=== PATIENT | male | born 1970 | race Hispanic/Latino ===

== ENCOUNTER 2021-03-17 22:29 | Inpatient (IN) | payer OTHER ==
[2021-03-17] MEDS ORDERED: IPRATROPIUM BROM 0.5MG/2.5ML ONE (23:14)
[2021-03-17] MEDS ORDERED: ALBUTEROL 2.5 MG/3 ML NEB SOL ONE (23:14)
[2021-03-17] MEDS ORDERED: NA CHLORIDE 0.9% 1,000 ML ONE (23:18)
[2021-03-17] MEDS ORDERED: ACETAMINOPHEN 500 MG TAB ONE (23:20)
[2021-03-17] MEDS ORDERED: NA CHLORIDE 0.9% 2,000 ML ONE (23:20)
[2021-03-17 23:36] LABS: Absolute Lymphocytes (CBC) 0.6 K/uL (0.7-4.9); Basophils % 0.2 % (0-1.3); Hematocrit 40.6 % (39.6-49.0); Lymphocytes % 6.9 % (15.3-44.8)
[2021-03-17 23:39] LABS: Protime INR 1.17
[2021-03-17 23:46] LABS: ALT/SGPT 36 U/L (12-78); AST/SGOT 34 U/L (15-37); Albumin 3.4 g/dL (3.4-5.0); Alkaline Phosphatase 53 U/L (45-117); BUN Blood Urea Nitrogen 20 mg/dL (7-18); Bicarbonate 26 mmol/L (21-32); Bilirubin Direct 0.2 mg/dL (0-0.2); Bilirubin Total 0.6 mg/dL (0.2-1.0); Glucose Level 178 mg/dL (74-106); Magnesium 1.9 mg/dL (1.8-2.4); NT PRO-BNP 40 pg/mL (<125); Potassium 3.4 mmol/L (3.5-5.1); Protein, Total 8.2 g/dL (6.4-8.2); Sodium Level 134 mmol/L (136-145); Troponin (Emerg Dept Use Only) < 0.02 ng/mL (0.0-0.045)
[2021-03-17 23:49] LABS: Amylase 73 U/L (25-115); CKMB Creatine Kinase MB < 1.0 ng/mL (1.0-3.6); Creatine Phosphokinase 125 U/L (39-308); Lipase 144 U/L (73-393)
--- NOTE | 2021-03-18 00:43 | ER ---
Nurse's Notes [facility] Name: Conrad Sandoval Jr Age: 50 yrs Sex: Male : 1970 Arrival Date: 03/17/2021 Time: 22:39 Bed 28 Private MD: Diagnosis: Hypoxia;Pneumonia, unspecified organism Presentation: 03/17 22:55 Chief complaint: EMS states: complaining of Shortness of breath. SPO2 86 %RA hooked to rr5 NRM SPO2 98%, last went to his PCP diagnosed with Upper respiratory infection given antibiotic prescription. 22:55 Coronavirus screen: difficulty breathing, fever, shortness of breath, Client presents rr5 with at least one sign or symptom that may indicate coronavirus-19. Standard/surgical mask placed on the client. Provider contacted for isolation considerations. Ebola Screen: Patient negative for fever greater than or equal to 101.5 degrees Fahrenheit, and additional compatible Ebola Virus Disease symptoms Patient denies exposure to infectious person. Patient denies travel to an Ebola-affected area in the 21 days before illness onset. Initial Sepsis Screen: Does the patient meet any 2 criteria? Temp <36.0*C (96.8*F)) or > 38.3*C (100.9*F). HR > 90 bpm. Does the patient have a suspected source of infection? Yes: Productive cough/pneumonia If YES to both, name of provider notified: Keyur Pratt NP Risk Assessment: Do you want to hurt yourself or someone else? Patient reports no desire to harm self or others. Onset of symptoms was March 14, 2021. 22:55 Method Of Arrival: EMS: [facility] rr5 22:55 Acuity: ELIAN 2 rr5 22:55 Care prior to arrival: Medication(s) given: Albuterol Neb Atrovent Neb Normal saline rr5 infusion, 250 ml IV initiated. 18 GA, in the right antecubital area, Med neb given. Oxygen administered. via a non-rebreather mask. Historical: - Allergies: 23:09 No Known Allergies; rr5 - Home Meds: 23:09 Metformin Oral [Active]; Cefuroxime Oral [Active]; prednisone Oral [Active]; rr5 - PMHx: 23:09 Diabetes - IDDM; rr5 - PSHx: 23:09 None; rr5 - Immunization history:: Adult Immunizations up to date, Client reports having NOT received the Covid vaccine. - Social history:: Smoking status: unknown. Screenin:48 Abuse screen: Denies threats or abuse. Denies injuries from another. Nutritional rr5 screening: No deficits noted. Tuberculosis screening: No symptoms or risk factors identified. Fall Risk IV access (20 points). Total Damon Fall Scale indicates No Risk (0-24 pts). Assessment: 03/16 23:00 General: Appears in no apparent distress. uncomfortable, Behavior is calm, cooperative, rr5 appropriate for age, Reports fever for. 23:00 Pain: Denies pain. Neuro: Level of Consciousness is awake, alert, obeys commands, rr5 Oriented to person, place, time. Cardiovascular: Capillary refill < 3 seconds Patient's skin is warm and dry. Respiratory: Reports shortness of breath cough that is Airway is patent Respiratory effort is even, unlabored, Respiratory pattern is regular, symmetrical, tachypnea. GI: No signs and/or symptoms were reported involving the gastrointestinal system. : No signs and/or symptoms were reported regarding the genitourinary system. EENT: No signs and/or symptoms were reported regarding the EENT system. Derm: Skin temperature is warm. Musculoskeletal: Circulation, motion, and sensation intact. Capillary refill < 3 seconds. 03/18 00:00 Reassessment: Patient appears in no apparent distress at this time. Patient is alert, rr5 oriented x 3, equal unlabored respirations, skin warm/dry/pink. Patient states symptoms have improved. 00:57 Reassessment: Patient appears in no apparent distress at this time. Patient is alert, rr5 oriented x 3, equal unlabored respirations, skin warm/dry/pink. hospitalist at bedside. 01:57 Reassessment: Patient and/or family updated on plan of care and expected duration. Pain ea level reassessed. Patient is alert, oriented x 3, equal unlabored respirations, skin warm/dry/pink. Patient states symptoms have improved. 03:00 Reassessment: Patient appears in no apparent distress at this time. Patient is alert, rr5 oriented x 3, equal unlabored respirations, skin warm/dry/pink. report given to carmen RAI. Vital Signs: 03/17 22:55 BP 144 / 91; Pulse 104; Resp 20; Temp 100.2; Pulse Ox 100% on 15% Non-rebreather mask; rr5 Weight 77.11 kg; Height 6 ft. 0 in. (182.88 cm); Pain 0/10; 23:47 BP 127 / 75; Pulse 107; Resp 27; Pulse Ox 91% on 3 lpm NC; rr5 03/18 00:13 BP 127 / 78; Pulse 104; Resp 24; Temp 98.9; Pulse Ox 94% on 3 lpm NC; rr5 01:56 BP 123 / 78; Pulse 94; Resp 24; Pulse Ox 92% on 3 lpm NC; ea 02:55 BP 121 / 70; Pulse 88; Resp 25; Pulse Ox 93% on 3 lpm NC; ea 03/17 22:55 Body Mass Index 23.06 (77.11 kg, 182.88 cm) rr5 ED Course: 03/16 23:00 Patient has correct armband on for positive identification. Placed in gown. Bed in low rr5 position. Call light in reach. Side rails up X2. laboratory monitor on. Pulse ox on. NIBP on. 03/17 22:39 Patient arrived in ED. mw2 22:40 Keyur Pratt NP is PHCP. pm1 22:40 Cyrus Levi MD is Attending Physician. pm1 23:00 Arm band placed on right wrist. Patient placed in an exam room, on a stretcher, on ea pulse oximetry. 23:03 Diogo Moss RN is Primary Nurse. rr5 23:05 EKG done, by ED staff, reviewed by Keyur Pratt NP. rr5 23:08 Triage completed. rr5 23:10 Inserted saline lock: 18 gauge in right antecubital area, using aseptic technique. rr5 ,using aseptic technique. inserted by ulises RAI Blood collected. 23:33 XRAY Chest (1 view) In Process Unspecified. EDMS 03/18 00:42 Patric Dutton DO is Hospitalizing Provider. pm1 01:46 No provider procedures requiring assistance completed. Patient admitted, IV remains in ea place. Administered Medications: 03/17 22:56 Drug: Albuterol - atroVENT (ipratropium) (3:1) (2.5 mg - 0.5 mg) 3 ml Route: Nebulizer; ea 03/18 00:00 Follow up: Response: No adverse reaction rr5 03/17 23:04 Drug: Tylenol 1000 mg Route: PO; rr5 03/18 00:55 Follow up: Response: Temperature is decreased rr5 03/17 23:12 Drug: NS 0.9% (30 ml/kg) 30 ml/kg Route: IV; Rate: bolus; Site: right antecubital; rr5 03/18 01:00 Follow up: Response: No adverse reaction; IV Status: Completed infusion; IV Intake: rr5 2300ml 02:21 Drug: SOLU-Medrol (methylPrednisoLONE) 125 mg Route: IVP; Site: left antecubital; ea 02:59 Follow up: Response: No adverse reaction rr5 Intake: 01:00 IV: 2300ml; Total: 2300ml. rr5 Outcome: 00:43 Decision to Hospitalize by Provider. pm1 01:46 Admitted to ER Hold. Please see [facility] for further documentation. ea 01:46 Condition: stable 01:46 Instructed on the need for admit, Demonstrated understanding of instructions. 03:15 Patient left the ED. rr5 Signatures: Dispatcher [employer] EDMS Keyur Pratt NP REHABILITATION CENTER MANAGER pm1 Reanna Borrego RN RN Maynor King mw2 Diogo Moss RN RN rr5 Corrections: (The following items were deleted from the chart) 01:03 03/17 22:55 Care prior to arrival: Medication(s) given: Albuterol Neb Atrovent Neb rr5 Normal saline infusion, 250 ml IV initiated. 18 GA, in the right antecubital area, Med neb given. Oxygen administered. via a non-rebreather mask, rr5 03/18 02:59 03/17 22:55 Care prior to arrival: Medication(s) given: Albuterol Neb Atrovent Neb rr5 Normal saline infusion, 250 ml solu medrol IV initiated. 18 GA, in the right antecubital area, Med neb given. Oxygen administered. via a non-rebreather mask, rr5
--- NOTE | 2021-03-18 00:43 | EDPHYS ---
Physician Documentation [facility] Name: Conrad Sandoval Jr Age: 50 yrs Sex: Male : 1970 Arrival Date: 03/17/2021 Time: 22:39 Bed 28 Private MD: ED Physician Cyrus Levi HPI: 03/17 23:05 This 50 yrs old Male presents to ER via EMS with complaints of Shortness Of pm1 Breath. 23:05 The patient has shortness of breath at rest. Onset: The symptoms/episode began/occurred pm1 3 day(s) ago. Duration: The symptoms are continuous, and are steadily getting worse. The patient's shortness of breath is aggravated by nothing, is alleviated by nothing. Associated signs and symptoms: Pertinent positives: chest pain, fever, with deep breathing, Pertinent negatives: vomiting, diarrhea. Severity of symptoms: in the emergency department the symptoms are worse. The patient has been recently seen by a physician: the patient's primary care provider, Dr. Carrizales with similar presenting complaints, was given a prescription for antibiotics, Steroids. Patient with RA sat of 86% on EMS arrival. Historical: - Allergies: 23:09 No Known Allergies; rr5 - Home Meds: 23:09 Metformin Oral [Active]; Cefuroxime Oral [Active]; prednisone Oral [Active]; rr5 - PMHx: 23:09 Diabetes - IDDM; rr5 - PSHx: 23:09 None; rr5 - Immunization history:: Adult Immunizations up to date, Client reports having NOT received the Covid vaccine. - Social history:: Smoking status: unknown. ROS: 23:05 Eyes: Negative for injury, pain, redness, and discharge, ENT: Negative for injury, pm1 pain, and discharge, Neck: Negative for injury, pain, and swelling. 23:05 Abdomen/GI: Negative for abdominal pain, nausea, vomiting, diarrhea, and constipation, Back: Negative for injury and pain, MS/Extremity: Negative for injury and deformity, Skin: Negative for injury, rash, and discoloration, Neuro: Negative for headache, weakness, numbness, tingling, and seizure. 23:05 Constitutional: Positive for fever. 23:05 Cardiovascular: Positive for chest pain, with deep breathing. 23:05 Respiratory: Positive for shortness of breath. Exam: 23:05 Constitutional: This is a well developed, well nourished patient who is awake, alert, pm1 and in no acute distress. Head/Face: Normocephalic, atraumatic. 23:05 Skin: Warm, dry with normal turgor. Normal color with no rashes, no lesions, and no evidence of cellulitis. MS/ Extremity: Pulses equal, no cyanosis. Neurovascular intact. Full, normal range of motion. 23:05 Eyes: Exam is negative for acute changes, Extraocular movements: no acute changes, Conjunctiva: normal, no injection. 23:05 ENT: Mouth: Lips: normal, Oral mucosa: normal, pink and intact, moist. 23:05 Chest/axilla: Inspection: normal, Palpation: is normal. 23:05 Cardiovascular: Rate: tachycardic, Rhythm: regular, Pulses: no pulse deficits are appreciated, Heart sounds: normal, Edema: is not appreciated. 23:05 Respiratory: the patient does not display signs of respiratory distress, Respirations: normal, Breath sounds: bronchial sounds, are heard diffusely. 23:05 Abdomen/GI: Inspection: abdomen appears normal, Palpation: abdomen is soft and non-tender. 23:05 Neuro: Orientation: is normal, Mentation: is normal, Motor: is normal, moves all fours. Vital Signs: 22:55 BP 144 / 91; Pulse 104; Resp 20; Temp 100.2; Pulse Ox 100% on 15% Non-rebreather mask; rr5 Weight 77.11 kg; Height 6 ft. 0 in. (182.88 cm); Pain 0/10; 23:47 BP 127 / 75; Pulse 107; Resp 27; Pulse Ox 91% on 3 lpm NC; rr5 03/18 00:13 BP 127 / 78; Pulse 104; Resp 24; Temp 98.9; Pulse Ox 94% on 3 lpm NC; rr5 01:56 BP 123 / 78; Pulse 94; Resp 24; Pulse Ox 92% on 3 lpm NC; ea 02:55 BP 121 / 70; Pulse 88; Resp 25; Pulse Ox 93% on 3 lpm NC; ea 03/17 22:55 Body Mass Index 23.06 (77.11 kg, 182.88 cm) rr5 MDM: 03/17 22:44 Patient medically screened. pm1 03/18 00:39 Physician consultation: Turner PARNELL regarding admission, patient's condition, and pm1 will see patient in ED, pending covid swab result. Impression likely covid pneumonia. If covid swab negative, then initiate abx therapy. 00:41 Data reviewed: vital signs. Data interpreted: Pulse oximetry: on 3L(s) per nasal pm1 canula, is 94 %. Interpretation: acceptable. Counseling: I had a detailed discussion with the patient and/or guardian regarding: the historical points, exam findings, and any diagnostic results supporting the discharge/admit diagnosis, lab results, radiology results, the need for further work-up and treatment in the hospital, to return to the emergency department if symptoms worsen or persist or if there are any questions or concerns that arise at home. 00:41 ED course: Patient with supplemental oxygen requirements. 86% on EMS arrival. On ER pm1 arrival patient on NRB. Patient requiring 3 L NC to maintain 93-94%. 03/17 22:50 Order name: Basic Metabolic Panel; Complete Time: 00:23 pm03/17 22:50 Order name: CBC with Diff; Complete Time: 00:23 pm03/17 22:50 Order name: LFT's; Complete Time: 00:23 pm03/17 22:50 Order name: Magnesium; Complete Time: 00:23 pm03/17 22:50 Order name: NT PRO-BNP; Complete Time: 00:23 pm03/17 22:50 Order name: PT-INR; Complete Time: 00:23 pm03/17 22:50 Order name: Troponin (emerg Dept Use Only); Complete Time: 00:23 pm03/17 22:53 Order name: Amylase, Serum 03/17 22:53 Order name: Blood Culture Adult (2) 03/17 22:53 Order name: Ckmb 03/17 22:53 Order name: CPK 03/17 22:53 Order name: Lactate; Complete Time: 00:23 pm03/17 22:53 Order name: Lipase 03/17 22:53 Order name: Procalcitonin; Complete Time: 00:30 pm03/17 22:50 Order name: XRAY Chest (1 view); Complete Time: 13:45 pm03/17 22:53 Order name: Ptt, Activated; Complete Time: 00:23 pm03/17 22:53 Order name: Urine Microscopic Only pm03/17 22:53 Order name: Amylase; Complete Time: 00:23 EDMS 03/17 22:53 Order name: CRP; Complete Time: 00:23 la03/17 22:54 Order name: CKMB Creatine Kinase MB; Complete Time: 00:23 EDMS 03/17 22:54 Order name: Creatine Phosphokinase; Complete Time: 00:23 EDMS 03/17 22:54 Order name: Lipase; Complete Time: 00:23 EDMS 03/17 23:13 Order name: COVID-19 : Document "Date of Symptom Onset" if Symptomatic. pm03/17 23:13 Order name: Flu 03/17 23:13 Order name: Strep; Complete Time: 13:45 pm03/17 23:13 Order name: Influenza Screen (A ; Complete Time: 13:45 EDMS 03/18 02:29 Order name: SARS-COV-2 RT PCR; Complete Time: 13:45 EDMS 03/17 22:50 Order name: EKG; Complete Time: 22:51 pm03/17 22:50 Order name: Cardiac monitoring; Complete Time: 23:13 pm03/17 22:50 Order name: EKG - Nurse/Tech; Complete Time: 23:13 pm03/17 22:50 Order name: IV Saline Lock; Complete Time: 23:13 pm03/17 22:50 Order name: Labs collected and sent; Complete Time: 23:13 pm03/17 22:50 Order name: O2 Per Protocol; Complete Time: 23:13 pm03/17 22:50 Order name: O2 Sat Monitoring; Complete Time: 23:13 pm03/17 22:53 Order name: Accucheck; Complete Time: 23:13 pm03/17 22:53 Order name: IV Saline Lock - Large Bore; Complete Time: 23:12 pm03/17 22:53 Order name: Urine Dipstick-Ancillary (obtain specimen); Complete Time: 02:07 pm03/18 02:07 Interpretation: Abnormal. la1 Administered Medications: 03/17 22:56 Drug: Albuterol - atroVENT (ipratropium) (3:1) (2.5 mg - 0.5 mg) 3 ml Route: Nebulizer; ea 03/18 00:00 Follow up: Response: No adverse reaction rr5 03/17 23:04 Drug: Tylenol 1000 mg Route: PO; rr5 03/18 00:55 Follow up: Response: Temperature is decreased rr5 03/17 23:12 Drug: NS 0.9% (30 ml/kg) 30 ml/kg Route: IV; Rate: bolus; Site: right antecubital; rr5 03/18 01:00 Follow up: Response: No adverse reaction; IV Status: Completed infusion; IV Intake: rr5 2300ml 02:21 Drug: SOLU-Medrol (methylPrednisoLONE) 125 mg Route: IVP; Site: left antecubital; ea 02:59 Follow up: Response: No adverse reaction rr5 Disposition: 05:37 Co-signature as Attending Physician, Cyrus Levi MD. 7 Disposition: 03/18/21 00:43 Hospitalization ordered by Patric Dutton for Inpatient Admission. Preliminary diagnosis are Hypoxia, Pneumonia, unspecified organism. - Bed requested for Intensive Care Unit. - Status is Inpatient Admission. rr5 - Condition is Stable. - Problem is new. - Symptoms have improved. Signatures: Dispatcher [employer] EDIA Turner Avelar, RECORDS MANAGEMENT COORDINATOR-C RECORDS MANAGEMENT COORDINATOR-Cla1 Keyur Pratt, [employer] pm1 Reanna Borrego, RN RN Maynor Carroll mw2 Diogo Moss RN RN rr5 Cyrus Levi MD MD 7 Geneva Rodrigues RN RN rd1 Corrections: (The following items were deleted from the chart) 01:05 03/17 23:13 CORONAVIRUS ordered. [facility] EDIA 03/18 01:10 00:43 Hospitalization Ordered by Patric Dutton DO for Inpatient Admission. Preliminary mw2 diagnosis is Hypoxia; Pneumonia, unspecified organism. Bed requested for Telemetry/MedSurg (Inpatient). Status is Inpatient Admission. Condition is Stable. Problem is new. Symptoms have improved. pm1 02:49 01:10 03/18/2021 00:43 Hospitalization Ordered by Patric Dutton DO for Inpatient rd1 Admission. Preliminary diagnosis is Hypoxia; Pneumonia, unspecified organism. Bed requested for [facility] ER HOLD. Status is Inpatient Admission. Condition is Stable. Problem is new. Symptoms have improved. mw2 02:50 02:49 03/18/2021 00:43 Hospitalization Ordered by Patric Dutton DO for Inpatient rd1 Admission. Preliminary diagnosis is Hypoxia; Pneumonia, unspecified organism. Bed requested for [facility] ER HOLD. Status is Inpatient Admission. Condition is Stable. Problem is new. Symptoms have improved. rd1 02:51 02:50 03/18/2021 00:43 Hospitalization Ordered by Patric Dutton DO for Inpatient mw2 Admission. Preliminary diagnosis is Hypoxia; Pneumonia, unspecified organism. Bed requested for [facility] ER HOLD. Status is Inpatient Admission. Condition is Stable. Problem is new. Symptoms have improved. rd1 03:15 02:51 03/18/2021 00:43 Hospitalization Ordered by Patric Dutton DO for Inpatient rr5 Admission. Preliminary diagnosis is Hypoxia; Pneumonia, unspecified organism. Bed requested for Intensive Care Unit. Status is Inpatient Admission. Condition is Stable. Problem is new. Symptoms have improved. mw2
--- NOTE | 2021-03-18 02:12 | P.HP ---
Certification for Inpatient Patient admitted to: Inpatient With expected LOS: >2 Midnights Patient will require the following post-hospital care: None Practitioner: I am a practitioner with admitting privileges, knowledge of patient current condition, hospital course, and medical plan of care. Services: Services provided to patient in accordance with Admission requirements found in Title 42 Section 412.3 of the Code of Federal Regulations Patient History Date of Service: 03/18/21 Primary Care Provider: Dr. rg Reason for admission: COVID-19 pneumonia History of Present Illness: 50-year-old male with history of diabetes mellitus type 2, hypertension presents emergency department for shortness of breath. Patient reports feeling short of breath since Friday, was seen by his primary care doctor on Friday and prescribed Zithromax in tested for influenza which was negative. Patient presents the emergency department for evaluation was found to be saturating in the 80s on room air. Further evaluation, labs significant for normal white blood cell count, pro calcitonin negative lactate negative sodium 134, potassium 3.4, glucose 178 C-reactive protein 91.2, patient positive for COVID. ED provider wishes to admit for further evaluation and management. 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 moist/pink Neck: Supple, 2+ carotid pulse no bruit, No LAD Respiratory: Normal air movement, Diminished Cardiovascular: Regular rate/rhythm, Normal S1 S2 Gastrointestinal: Normal bowel sounds, No tenderness Musculoskeletal: No tenderness Integumentary: No rashes Neurological: Normal gait, Normal speech, Normal strength at 5/5 x4 extr, Normal tone, Normal affect Lymphatics: No axilla or inguinal lymphadenopathy - Studies Laboratory Data (last 24 hrs) 03/17/21 23:05: APTT 27.2 03/17/21 23:05: Amylase 73, Lipase 144 03/17/21 23:05: PT 13.5 H, INR 1.17 03/17/21 23:05: WBC 8.20, Hgb 14.0, Hct 40.6, Plt Count 252 03/17/21 23:05: Sodium 134 L, Potassium 3.4 L, BUN 20 H, Creatinine 0.91, Glucose 178 H, Magnesium 1.9, Total Bilirubin 0.6, AST 34, ALT 36, Alkaline Phosphatase 53 Assessment and Plan - Plan Assessment Acute hypoxic respiratory failure secondary to COVID-19 pneumonia Diabetes mellitus type 2-insulin dependent with hyperglycemia Hypertension Plan Acute hypoxic respiratory failure secondary to COVID-19 pneumonia: Patient did not receive vaccines, will continue with IV steroids, oral supplements, pulmonology consulted for additional assistance/medications selection. Daily CRP/ferritin levels. Supplemental oxygen as needed, respiratory therapy consult in place. Daily room air saturations. DVT prophylaxis Lovenox 40 mg subcutaneous once daily. Diabetes mellitus type 2-insulin dependent with hyperglycemia: A.c. HS Accu- Cheks, sliding scale insulin. Continue home medication. Patient reports last A1c was around 6. Hypertension : Continue home medications as appropriate. Discharge Plan: Home Plan to discharge in: 48 Hours - Advance Directives Does patient have a Living Will: No Does patient have a Durable POA for Healthcare: No - Code Status/Comfort Care Code Status Assessed: Yes (Full code) Critical Care: No Time Spent Managing Pts Care (In Minutes): 55
[2021-03-18] MEDS ORDERED: METHYLPREDNISOLONE 125 MG INJ ONE (02:39)
[2021-03-18] MEDS ORDERED: ONDANSETRON 4 MG/2 ML VIAL IV PRN (03:16)
[2021-03-18] MEDS ORDERED: BENZONATATE 100 MG CAP PO PRN (03:16)
[2021-03-18] MEDS ORDERED: GLUCAGON 1 MG/VIAL IM PRN (03:16)
[2021-03-18] MEDS ORDERED: ACETAMINOPHEN 500 MG TAB PO PRN (03:16)
[2021-03-18] MEDS ORDERED: D50W 25 GM/50 ML SYRINGE IV PRN (03:16)
[2021-03-18] MEDS ORDERED: MELATONIN 5 MG TABLET PO PRN (03:16)
[2021-03-18 04:17] VITALS: BMI 23.0
--- NOTE | 2021-03-18 05:55 | P.PN ---
Subjective Date of Service: 03/18/21 Primary Care Provider: Dr. rg Chief Complaint: COVID-19 pneumonia Subjective: Other (Patient reports improvement. Currently on 5 L per nasal cannula. Patient does not appear labored.) Physical Examination - Vital Signs Temperature: 97.4 F Blood Pressure: 128/86 Pulse: 82 Respirations: 22 Pulse Ox (%): 87 - Studies Laboratory Data (last 24 hrs) 03/17/21 23:05: APTT 27.2 03/17/21 23:05: Amylase 73, Lipase 144 03/17/21 23:05: PT 13.5 H, INR 1.17 03/17/21 23:05: WBC 8.20, Hgb 14.0, Hct 40.6, Plt Count 252 03/17/21 23:05: Sodium 134 L, Potassium 3.4 L, BUN 20 H, Creatinine 0.91, Glucose 178 H, Magnesium 1.9, Total Bilirubin 0.6, AST 34, ALT 36, Alkaline Phosphatase 53 Microbiology Data (last 24 hrs): 03/17/21 23:25 Nasopharnyx Influenza Type A Antigen Screen - Final 03/17/21 23:25 Nasopharnyx Influenza Type B Antigen Screen - Final 03/17/21 23:25 Throat Group A Streptococcus Rapid Screen - Final Assessment & Plan Discharge Plan: Home Plan to discharge in: 72 Hours Physician Review Additional Text: Physical exam General: Alert, In no apparent distress. Currently on 5 L per nasal cannula. Patient does not appear in any distress. HEENT: Atraumatic, PERRLA, Mucous membr. moist/pink Neck: Supple Respiratory: Currently on 4 L per nasal cannula Cardiovascular: Regular rate/rhythm, Normal S1 S2 Gastrointestinal: Normal bowel sounds, No tenderness Musculoskeletal: No tenderness Integumentary: No rashes Neurological: Normal gait, Normal speech, Normal strength at 5/5 x4 extr, Normal tone, Normal affect Lymphatics: No axilla or inguinal lymphadenopathy Impression: Acute hypoxic respiratory failure secondary to COVID-19 pneumonia Diabetes mellitus type 2-insulin dependent with hyperglycemia Plan Acute hypoxic respiratory failure secondary to COVID-19 pneumonia: Patient reports some improvement. Continue IV steroids, vitamin supplementation and oxygen. Continue to wean off oxygen. Currently on 5 L per nasal cannula. CRP elevated. Continue to monitor CRP and ferritin levels. DVT prophylaxisLovenox in place. Encourage proning, incentive spirometer and ambulation. Pulmonology consulted for further recommendation. Patient may benefit with remdesivir or baricitinib. Will discuss with pulmonology. Anticipate continued improvement over the next 48 to 72 hours. Patient will likely require oxygen at discharge. Will need to keep diabetes well controlled. I will turn the service over to the hospitalist team tomorrow. I will go plan of care with him. Diabetes mellitus type 2-insulin dependent with hyperglycemia: Continue basal insulin. Restart home Metformin. Will check A1c. Sliding scale in place. Maintain adequate control of diabetes. DVT prophylaxis: Lovenox Code Status: Full code Advanced care planning: Home at [place] Time Spent Managing Pts Care (In Minutes): 55
[2021-03-18 07:09] LABS: Urine Appearance CLEAR (Clear); Urine Bilirubin NEGATIVE (Negative); Urine Blood NEGATIVE (Negative); Urine Color YELLOW (Yellow); Urine Glucose 3+ (Negative); Urine Protein 1+ (Negative); Urine Specific Gravity >=1.030 (1.005-1.030)
[2021-03-18] MEDS: INSULIN -REGULAR HUMAN 50 UNIT/0.5 ML ML SQ SCH ×4 (07:33→20:51)
[2021-03-18] MEDS: THIAMINE HCL 100 MG TABLET PO SCH (07:34)
[2021-03-18] MEDS: VITAMIN D 1000 UNIT TAB PO SCH (07:34)
[2021-03-18] MEDS: ASPIRIN EC 81 MG TAB PO SCH (07:34)
[2021-03-18] MEDS: METHYLPREDNISOLONE 40 MG INJ IV SCH ×3 (07:35→20:51)
[2021-03-18] MEDS: ASCORBIC ACID 500 MG TABLET PO SCH ×4 (07:35→20:51)
[2021-03-18] MEDS: ZINC SULFATE 220 MG CAP PO SCH (07:35)
[2021-03-18] MEDS: ENOXAPARIN 40 MG/0.4 ML SQ SCH (07:35)
[2021-03-18] MEDS: IVERMECTIN 3 MG TABLET PO SCH (08:29)
[2021-03-18] MEDS ORDERED: POTASSIUM CL SA 10 MEQ TAB PO ONE ×2 (09:00→15:00)
--- NOTE | 2021-03-18 09:18 | P.CNS ---
Date of Consult: 03/19/21 Reason for Consult: REsp failure Primary Care Provider: Dr. rg Chief Complaint: COVID-19 pneumonia History of Present Illness: Age 50 AW resp failure from COVID, AW worsening SOB and hypoxemia/patient has metabolic syndrome was treated by his primary care with Zithromax still continues to remain very hypoxic although is feeling better since admission Allergies No Known Allergies Allergy (Verified 03/18/21 03:06) Home Medications: Cefuroxime Axetil [Cefuroxime] 500 mg PO BID 03/18/21 Insulin Degludec [Tresiba Flextouch U-200] 40 unit SQ DAILY 03/18/21 Metformin ER [Glucophage ER] 500 mg PO BID 03/18/21 predniSONE [Deltasone] 10 mg PO BID 03/18/21 - Past Medical/Surgical History Diabetic: Yes -: Diabetes mellitus type 2-insulin dependent -: Hypertension -: none Psychosocial/ Personal History: 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[email or web address], 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 - Family History Mother Medical History: Diabetes Father History Unknown: Yes Medical History: Diabetes - Social History Smoking Status: Unknown if ever smoked Alcohol use: No CD- Drugs: No Caffeine use: Yes Place of Residence: Home Review of Systems General: Weakness Respiratory: Shortness of Breath Physical Examination Temp Pulse Resp BP Pulse Ox 97.2 F 82 20 137/97 H 90 L 03/18/21 08:00 03/18/21 08:00 03/18/21 08:00 03/18/21 08:00 03/18/21 08:00 Laboratory Data (last 24 hrs) 03/17/21 23:05: APTT 27.2 03/17/21 23:05: Amylase 73, Lipase 144 03/17/21 23:05: PT 13.5 H, INR 1.17 03/17/21 23:05: WBC 8.20, Hgb 14.0, Hct 40.6, Plt Count 252 03/17/21 23:05: Sodium 134 L, Potassium 3.4 L, BUN 20 H, Creatinine 0.91, Glucose 178 H, Magnesium 1.9, Total Bilirubin 0.6, AST 34, ALT 36, Alkaline Phosphatase 53 - Problems (1) Acute respiratory failure due to severe acute respiratory syndrome coronavirus 2 (SARS-CoV-2) infection Current Visit: Yes Status: Acute Plan: Patient is 50 years of age admitted with respiratory failure from kaufman virus he still very hypoxic also being treated with high dose just steroids andBarcitinib. Anti coagulated with Xarelto 10 mg twice a day vital signs stable labs chest x-ray r reviewed he still very hypoxic is an 80% FiO2
[2021-03-18 10:04] LABS: Urine Bacteria NONE SEEN /HPF (NONE SEEN); Urine Microscopic Reflex ORDER UMIC; Urine RBC <5 /HPF (NONE SEEN)
--- NOTE | 2021-03-18 11:12 | RAD REPORT ---
EXAM DESCRIPTION: Amos Single View03/17/2021 11:34 pm CLINICAL HISTORY: Cough COMPARISON: 2013 FINDINGS: Moderate bilateral patchy lung opacities Mild prominence mediastinum. Heart is upper normal size IMPRESSION: Moderate bilateral patchy lung opacities probably pneumonia Mild prominence of mediastinum be confluence of vessels or lymphadenopathy
[2021-03-18] MEDS: BARICITINIB 2 MG TABLET PO SCH (11:14)
[2021-03-18] MEDS: METFORMIN ER 500 MG TAB PO SCH (16:00)
[2021-03-18] MEDS: INSULIN GLARGINE 100 UNITS/ML SQ SCH (16:01)
[2021-03-19 04:44] LABS: Absolute Lymphocytes (CBC) 0.8 K/uL (0.7-4.9); Basophils % 0.1 % (0-1.3); Hematocrit 37.1 % (39.6-49.0); MPV 8.5 fL (7.6-11.3); RBC Red Blood Cell Count 4.38 M/uL (4.33-5.43)
[2021-03-19 05:16] LABS: ALT/SGPT 29 U/L (12-78); AST/SGOT 24 U/L (15-37); Albumin 2.9 g/dL (3.4-5.0); Alkaline Phosphatase 41 U/L (45-117); BUN Blood Urea Nitrogen 18 mg/dL (7-18); Bicarbonate 29 mmol/L (21-32); Bilirubin Total 0.5 mg/dL (0.2-1.0); Ferritin 842.3 ng/mL (26-388); Glucose Level 154 mg/dL (74-106); HDL Cholesterol 40 mg/dL (40-60); LDL Cholesterol, Calculated 76 (<130); Magnesium 2.2 mg/dL (1.8-2.4); Potassium 3.8 mmol/L (3.5-5.1); Protein, Total 7.3 g/dL (6.4-8.2); Sodium Level 136 mmol/L (136-145); Thyroid Stimulating Hormone 0.563 uIU/mL (0.360-3.740)
[2021-03-19 06:06] LABS: Blood Morphology Comment NOT SEEN (NOT SEEN); Platelet Estimate ADEQ
[2021-03-19] MEDS: INSULIN -REGULAR HUMAN 50 UNIT/0.5 ML ML SQ SCH ×4 (07:30→20:45)
[2021-03-19] MEDS: THIAMINE HCL 100 MG TABLET PO SCH (08:24)
[2021-03-19] MEDS: METFORMIN ER 500 MG TAB PO SCH ×2 (08:24→16:50)
[2021-03-19] MEDS: BARICITINIB 2 MG TABLET PO SCH (08:24)
[2021-03-19] MEDS: ENOXAPARIN 40 MG/0.4 ML SQ SCH (08:24)
[2021-03-19] MEDS: METHYLPREDNISOLONE 40 MG INJ IV SCH ×3 (08:24→20:45)
[2021-03-19] MEDS: ASPIRIN EC 81 MG TAB PO SCH (08:25)
[2021-03-19] MEDS: VITAMIN D 1000 UNIT TAB PO SCH (08:25)
[2021-03-19] MEDS: ASCORBIC ACID 500 MG TABLET PO SCH ×4 (08:25→20:44)
[2021-03-19] MEDS: ZINC SULFATE 220 MG CAP PO SCH (08:25)
[2021-03-19] MEDS ORDERED: POTASSIUM CL SA 10 MEQ TAB PO ONE (09:00)
[2021-03-19] MEDS: RIVAROXABAN 10 MG TABLET PO SCH ×2 (09:26→20:44)
--- NOTE | 2021-03-19 15:52 | EKG ---
Test Date: 2021-03-17 Test Time: 22:55:17 Computer Numerical Control Operator: RR MEASUREMENT RESULTS: Intervals: Rate: 105 ID: [id number] QRSD: 88 QT: 330 QTc: 436 [place]: P: 30 ID: [id number] QRS: -11 T: 26 INTERPRETIVE STATEMENTS: Sinus tachycardia Otherwise normal ECG No previous ECG available for comparison Electronically Signed On 03-19-21 15:47:28 CDT by Bacilio Rios
[2021-03-19] MEDS: INSULIN GLARGINE 100 UNITS/ML SQ SCH (16:51)
[2021-03-20 05:06] LABS: Absolute Lymphocytes (CBC) 0.9 K/uL (0.7-4.9); Basophils % 0.4 % (0-1.3); Hematocrit 36.1 % (39.6-49.0); Lymphocytes % 10.7 % (15.3-44.8); MPV 8.5 fL (7.6-11.3); RBC Red Blood Cell Count 4.25 M/uL (4.33-5.43)
[2021-03-20 05:26] LABS: ALT/SGPT 32 U/L (12-78); AST/SGOT 20 U/L (15-37); Albumin 2.9 g/dL (3.4-5.0); Alkaline Phosphatase 41 U/L (45-117); BUN Blood Urea Nitrogen 23 mg/dL (7-18); Bicarbonate 30 mmol/L (21-32); Bilirubin Total 0.5 mg/dL (0.2-1.0); Ferritin 764.9 ng/mL (26-388); Glucose Level 145 mg/dL (74-106); Magnesium 2.3 mg/dL (1.8-2.4); Protein, Total 7.2 g/dL (6.4-8.2); Sodium Level 136 mmol/L (136-145)
--- NOTE | 2021-03-20 05:44 | P.PN ---
Subjective Date of Service: 03/19/21 Patient oxygen saturations are in the mid 90s on AIRVO at 85%. Otherwise no new complaints. Management per Pulmonary. Review of Systems 10-point ROS is otherwise unremarkable Physical Examination - Vital Signs Temperature: 97.1 F Blood Pressure: 124/83 Pulse: 65 Respirations: 21 Pulse Ox (%): 91 - Physical Exam General: Alert, In no apparent distress, Oriented x3 HEENT: Atraumatic, PERRLA, EOMI Neck: Supple, JVD not distended Respiratory: Diminished, Rhonchi/gurgles Cardiovascular: Regular rate/rhythm, Normal S1 S2, Systolic murmur Gastrointestinal: Normal bowel sounds, Soft and benign, Non-distended, No tenderness Musculoskeletal: No clubbing, No swelling, No tenderness Neurological: Normal speech, Normal tone, Normal affect Lymphatics: No axilla or inguinal lymphadenopathy - Studies Medications List Reviewed: Yes Assessment & Plan - Problems (Diagnosis) (1) Acute respiratory failure due to severe acute respiratory syndrome coronavirus 2 (SARS-CoV-2) infection Current Visit: Yes Status: Acute - Plan 1. Continue with IV steroids 2. Monitor inflammatory markers 3. Repeat chest x-ray is symptoms are progressively worsening 4. O2 per protocol 5. Management per Pulmonary 6. Continue with albuterol inhaler therapy; also supportive care 7. Monitor LFTs 8. GI and DVT prophylaxis - Advance Directives Does patient have a Living Will: No Does patient have a Durable POA for Healthcare: No
[2021-03-20] MEDS: INSULIN -REGULAR HUMAN 50 UNIT/0.5 ML ML SQ SCH ×4 (07:30→19:35)
[2021-03-20] MEDS: METHYLPREDNISOLONE 40 MG INJ IV SCH ×3 (08:06→19:35)
[2021-03-20] MEDS: RIVAROXABAN 10 MG TABLET PO SCH ×2 (08:07→19:35)
[2021-03-20] MEDS: VITAMIN D 1000 UNIT TAB PO SCH (08:07)
[2021-03-20] MEDS: THIAMINE HCL 100 MG TABLET PO SCH (08:07)
[2021-03-20] MEDS: ASCORBIC ACID 500 MG TABLET PO SCH ×4 (08:07→19:35)
[2021-03-20] MEDS: ASPIRIN EC 81 MG TAB PO SCH (08:07)
[2021-03-20] MEDS: ZINC SULFATE 220 MG CAP PO SCH (08:07)
[2021-03-20] MEDS: IVERMECTIN 3 MG TABLET PO SCH (08:08)
[2021-03-20] MEDS: METFORMIN ER 500 MG TAB PO SCH ×2 (08:08→16:36)
[2021-03-20] MEDS: BARICITINIB 2 MG TABLET PO SCH (08:09)
--- NOTE | 2021-03-20 12:35 | P.PN ---
Subjective Date of Service: 03/20/21 Primary Care Provider: Dr. rg Chief Complaint: Respiratory failure Subjective: Improving (Patient is improving feeling better still very hypoxic) Review of Systems General: Weakness Respiratory: Shortness of Breath Physical Examination - Vital Signs Temperature: 97.1 F Blood Pressure: 124/83 Pulse: 65 Respirations: 21 Pulse Ox (%): 91 - Studies Microbiology Data (last 24 hrs): 03/17/21 23:25 Throat Culture & Sensitivity - Final NORMAL UPPER RESPIRATORY EUNICE GROWN. Medications List Reviewed: Yes Assessment & Plan - Problems (Diagnosis) (1) Acute respiratory failure due to severe acute respiratory syndrome coronavirus 2 (SARS-CoV-2) infection Current Visit: Yes Status: Acute Plan: Respiratory failure on maximum treatment feeling better still on 70% FiO2 will continue to wean down labs reviewed patient is on maximum therapy his inform me that he will even continue with present therapy on 70% FiO2 is sat is now 91% Physician Review Additional Text: Physical exam General: Alert, In no apparent distress. Currently on 5 L per nasal cannula. Patient does not appear in any distress. HEENT: Atraumatic, PERRLA, Mucous membr. moist/pink Neck: Supple Respiratory: Currently on 4 L per nasal cannula Cardiovascular: Regular rate/rhythm, Normal S1 S2 Gastrointestinal: Normal bowel sounds, No tenderness Musculoskeletal: No tenderness Integumentary: No rashes Neurological: Normal gait, Normal speech, Normal strength at 5/5 x4 extr, Normal tone, Normal affect Lymphatics: No axilla or inguinal lymphadenopathy Impression: Acute hypoxic respiratory failure secondary to COVID-19 pneumonia Diabetes mellitus type 2-insulin dependent with hyperglycemia Plan Acute hypoxic respiratory failure secondary to COVID-19 pneumonia: Patient reports some improvement. Continue IV steroids, vitamin supplementation and oxygen. Continue to wean off oxygen. Currently on 5 L per nasal cannula. CRP elevated. Continue to monitor CRP and ferritin levels. DVT prophylaxisLovenox in place. Encourage proning, incentive spirometer and ambulation. Pulmonology consulted for further recommendation. Patient may benefit with remdesivir or baricitinib. Will discuss with pulmonology. Anticipate continued improvement over the next 48 to 72 hours. Patient will likely require oxygen at discharge. Will need to keep diabetes well controlled. I will turn the service over to the hospitalist team tomorrow. I will go plan of care with him. Diabetes mellitus type 2-insulin dependent with hyperglycemia: Continue basal insulin. Restart home Metformin. Will check A1c. Sliding scale in place. Maintain adequate control of diabetes. DVT prophylaxis: Lovenox Code Status: Full code Advanced care planning: Home at [place]
[2021-03-20] MEDS: INSULIN GLARGINE 100 UNITS/ML SQ SCH (16:36)
[2021-03-21 05:27] LABS: Absolute Lymphocytes (CBC) 0.9 K/uL (0.7-4.9); Basophils % 0.1 % (0-1.3); Hematocrit 37.7 % (39.6-49.0); Lymphocytes % 10.3 % (15.3-44.8); MPV 8.3 fL (7.6-11.3); RBC Red Blood Cell Count 4.41 M/uL (4.33-5.43)
[2021-03-21 05:36] LABS: ALT/SGPT 69 U/L (12-78); AST/SGOT 43 U/L (15-37); Albumin 2.9 g/dL (3.4-5.0); Alkaline Phosphatase 42 U/L (45-117); BUN Blood Urea Nitrogen 21 mg/dL (7-18); Bicarbonate 31 mmol/L (21-32); Bilirubin Total 0.6 mg/dL (0.2-1.0); Ferritin 752.4 ng/mL (26-388); Glucose Level 110 mg/dL (74-106); Magnesium 2.4 mg/dL (1.8-2.4); Potassium 3.8 mmol/L (3.5-5.1); Protein, Total 7.1 g/dL (6.4-8.2); Sodium Level 135 mmol/L (136-145)
[2021-03-21] MEDS ORDERED: POTASSIUM CL SA 10 MEQ TAB PO ONE ×2 (05:45→08:24)
[2021-03-21] MEDS: INSULIN -REGULAR HUMAN 50 UNIT/0.5 ML ML SQ SCH ×2 (06:59→11:30)
[2021-03-21] MEDS: POTASSIUM CL SA 10 MEQ TAB PO ONE ×2 (07:16→08:04)
--- NOTE | 2021-03-21 07:42 | RAD REPORT ---
EXAM DESCRIPTION: Amos Single View03/21/2021 6:13 am CLINICAL HISTORY: Respiratory failure COMPARISON: March 17, 2021 FINDINGS: Minimal improvement in bilateral pulmonary opacities. Heart is upper limits normal size. Mediastinum is mildly prominent IMPRESSION: Minimal improvement in bilateral pulmonary opacities which represent pulmonary edema or pneumonia
[2021-03-21] MEDS: ASPIRIN EC 81 MG TAB PO SCH (08:05)
[2021-03-21] MEDS: THIAMINE HCL 100 MG TABLET PO SCH (08:05)
[2021-03-21] MEDS: ASCORBIC ACID 500 MG TABLET PO SCH (08:05)
[2021-03-21] MEDS: VITAMIN D 1000 UNIT TAB PO SCH (08:05)
[2021-03-21] MEDS: RIVAROXABAN 10 MG TABLET PO SCH (08:05)
[2021-03-21] MEDS: ZINC SULFATE 220 MG CAP PO SCH (08:05)
[2021-03-21] MEDS: METHYLPREDNISOLONE 40 MG INJ IV SCH (08:05)
[2021-03-21] MEDS: BARICITINIB 2 MG TABLET PO SCH (08:06)
[2021-03-21] MEDS: METFORMIN ER 500 MG TAB PO SCH (08:06)
--- NOTE | 2021-03-21 09:42 | P.PN ---
Date of Service: 03/20/21 Subjective We have been able to wean down patient oxygen to 4 L. Clinically doing much better. Review of Systems 10-point ROS is otherwise unremarkable Physical Examination - Vital Signs reviewed - Physical Exam General: Alert, In no apparent distress, Oriented x3 Respiratory: Diminished, Rhonchi/gurgles Cardiovascular: Regular rate/rhythm, Normal S1 S2, Systolic murmur Gastrointestinal: Normal bowel sounds, Soft and benign, Non-distended, No tenderness Musculoskeletal: No clubbing, No swelling, No tenderness Neurological: Normal speech, Normal tone, Normal affect Assessment & Plan - Problems (Diagnosis) (1) Acute respiratory failure due to severe acute respiratory syndrome coronavirus 2 (SARS-CoV-2) infection Current Visit: Yes Status: Acute - Plan 1. Continue with IV steroids w/ baracitinib 2. Monitoring inflammatory markers 3. Repeat chest x-ray in AM pending 4. O2 per protocol 5. Management per Pulmonary 6. Continue with albuterol inhaler therapy; also supportive care 7. Monitor LFTs 8. GI and DVT prophylaxis - Advance Directives Does patient have a Living Will: No Does patient have a Durable POA for Healthcare: No
--- NOTE | 2021-03-21 09:49 | P.DS ---
Discharge Date: 03/21/21 Disposition: ROUTINE DISCHARGE Discharge Condition: GOOD Reason for Admission: Respiratory failure - Problems (1) Acute respiratory failure due to severe acute respiratory syndrome coronavirus 2 (SARS-CoV-2) infection Current Visit: Yes Status: Acute Brief History of Present Illness: Patient is a 50-year-old male with history of diabetes mellitus type 2, hypertension presents emergency department for shortness of breath. Patient reports feeling short of breath since Friday, was seen by his primary care doctor on Friday and prescribed Zithromax in tested for influenza which was negative. Patient presents the emergency department for evaluation was found to be saturating in the 80s on room air. Further evaluation, labs significant for normal white blood cell count, pro calcitonin negative lactate negative sodium 134, potassium 3.4, glucose 178 C-reactive protein 91.2, patient positive for COVID. ED provider wishes to admit for further evaluation and management. Hospital Course: Patient is clinically doing much better. Patient's oxygen requirements have gone down to 3L. We are arranging for home oxygen. Continue with steroids at discharge. At this time, patient is stable for discharge. Vital Signs/Physical Exam: Temp Pulse Resp BP Pulse Ox 97.1 F 65 21 H 124/83 91 03/21/21 09:29 03/21/21 09:29 03/21/21 09:29 03/21/21 09:29 03/21/21 09:29 General: Alert, In no apparent distress, Oriented x3 Laboratory Data at Discharge: WBC 8.90 K/uL (4.3-10.9) 03/21/21 05:04 Hgb 13.1 g/dL (13.6-17.9) L 03/21/21 05:04 Hct 37.7 % (39.6-49.0) L 03/21/21 05:04 Plt Count 334 K/uL (152-406) 03/21/21 05:04 PT 13.5 SECONDS (9.5-12.5) H 03/17/21 23:05 INR 1.17 03/17/21 23:05 APTT 27.2 SECONDS (24.3-36.9) 03/17/21 23:05 Sodium 135 mmol/L (136-145) L 03/21/21 05:04 Potassium 3.8 mmol/L (3.5-5.1) 03/21/21 05:04 BUN 21 mg/dL (7-18) H 03/21/21 05:04 Creatinine 0.77 mg/dL (0.55-1.3) 03/21/21 05:04 Glucose 110 mg/dL (74-106) H 03/21/21 05:04 Magnesium 2.4 mg/dL (1.8-2.4) 03/21/21 05:04 Total Bilirubin 0.6 mg/dL (0.2-1.0) 03/21/21 05:04 AST 43 U/L (15-37) H 03/21/21 05:04 ALT 69 U/L (12-78) 03/21/21 05:04 Alkaline Phosphatase 42 U/L (45-117) L 03/21/21 05:04 Triglycerides 105 mg/dL (<150) 03/19/21 04:24 Cholesterol 137 mg/dL (<200) 03/19/21 04:24 HDL Cholesterol 40 mg/dL (40-60) 03/19/21 04:24 Cholesterol/HDL Ratio 3.43 03/19/21 04:24 Amylase 73 U/L (25-115) 03/17/21 23:05 Lipase 144 U/L (73-393) 03/17/21 23:05 Home Medications: Cefuroxime Axetil [Cefuroxime] 500 mg PO BID 03/18/21 Insulin Degludec [Tresiba Flextouch U-200] 40 unit SQ DAILY 03/18/21 Metformin ER [Glucophage ER*] 500 mg PO BID 03/18/21 Albuterol Inhaler [Ventolin Inhaler*] 2 puff IH Q6H PRN #1 hfa.aer.ad 03/21/21 Apixaban [Eliquis] 5 mg PO BID #20 tablet 03/21/21 Ascorbic Acid [Vitamin C*] 500 mg PO QID #30 tablet 03/21/21 Benzonatate [Tessalon Perle*] 100 mg PO TID PRN #30 cap 03/21/21 Melatonin 5 mg PO BEDTIME PRN PRN #20 tablet 03/21/21 predniSONE [Deltasone] 20 mg PO BID #20 tab 03/21/21 New Medications: Apixaban [Eliquis] 5 mg PO BID #20 tablet Melatonin 5 mg PO BEDTIME PRN PRN #20 tablet PRN Reason: Insomnia predniSONE [Deltasone] 20 mg PO BID #20 tab Benzonatate [Tessalon Perle*] 100 mg PO TID PRN #30 cap PRN Reason: Cough Albuterol Inhaler [Ventolin Inhaler*] 2 puff IH Q6H PRN #1 hfa.aer.ad PRN Reason: Shortness Of Breath Ascorbic Acid [Vitamin C*] 500 mg PO QID #30 tablet Diet: AHA Activity: Fall precautions Followup: NONE,NONE [Primary Care Provider] - Time spent managing pt's care (in minutes): 35
[2021-03-21 11:33] VITALS: BP 120/68; TEMP 98.2
[2021-03-21 11:39] VITALS: O2SAT 94
--- NOTE | 2021-03-21 11:41 | P.PN ---
Subjective Date of Service: 03/21/21 Primary Care Provider: Dr. rg Chief Complaint: Respiratory failure Subjective: Improving (Patient is doing much better is down to 3 L nasal cannula oxygen) Review of Systems Respiratory: Shortness of Breath Physical Examination - Vital Signs Temperature: 98.2 F Blood Pressure: 120/68 Pulse: 74 Respirations: 25 Pulse Ox (%): 90 - Studies Microbiology Data (last 24 hrs): 03/17/21 23:25 Throat Culture & Sensitivity - Final NORMAL UPPER RESPIRATORY EUNICE GROWN. Medications List Reviewed: Yes Assessment & Plan - Problems (Diagnosis) (1) Acute respiratory failure due to severe acute respiratory syndrome coronavirus 2 (SARS-CoV-2) infection Current Visit: Yes Status: Acute Plan: Patient is improved significantly plan to discharge home on oxygen continue with prednisone 20 b.i.d. for a week continue with anticoagulation if possible the virus low-dose aspirin follow-up with me in 1 or 2 weeks labs reviewed
== END 2021-03-21 13:09 | disposition home or self-care (01) | DRG 177 ==
LOC: ER 22:29 → ERHOLD 03-18 02:01 → 3RD-ICU 03-18 03:05
PROVIDERS: ADMIT Family Medicine; ATTEND Family Medicine
PROC: 5A09357 Assistance with Respiratory Ventilation, Less than 24 Consecutive Hours, Continuous Positive Airway Pressure (ICD-10-PCS; principal; 2021-03-18)
DX: U07.1 COVID-19 (principal); A41.89 Other specified sepsis; J12.82 Pneumonia due to coronavirus disease 2019; J96.01 Acute respiratory failure with hypoxia; E11.65 Type 2 diabetes mellitus with hyperglycemia; I10 Essential (primary) hypertension; E88.81 Metabolic syndrome and other insulin resistance
CPT/HCPCS: 36415; 71045; 80048; 80053; 80061; 80076; 81003; 81015; 82150; 82550; 82553; 82728; 82947; 83036; 83605; 83690; 83735; 83880; 84132; 84145; 84439; 84443; 84484; 85025; 85610; 85730; 86140; 87040; 87070; 87081; 87804; 93005; 94002; 94003; 94010; 96365; 96366; 96375; 99285; J1650; J1815; J2920; J2930; J7030; U0003

== ENCOUNTER 2024-12-23 07:14 | Inpatient (IN) | payer OTHER, SELFPAY ==
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
--- NOTE | 2024-12-23 08:08 | RAD REPORT ---
EXAMINATION: ONE VIEW CHEST XR CLINICAL INDICATION: syncope, cough TECHNIQUE: Frontal chest projection is submitted. Examination is limited by patient positioning and t echnique. COMPARISON: 03/21/2021 FINDINGS: Mild interstitial prominence is seen. The heart is upper limit of normal in size. No displaced fractu res identified. IMPRESSION: Mild CHF.
--- NOTE | 2024-12-23 08:13 | RAD REPORT ---
EXAMINATION: CT MAXILLOFACIAL WITHOUT CONTRAST CLINICAL INDICATION: fall, mandibular injury TECHNIQUE: Axial images were obtained through the facial bones and orbits without intravenous contras t. Sagittal and coronal reconstructions were created from the data. One or more of the following dose reduction techniques were used: Automated exposure control, adjustment of the mA and/or kV accor ding to patient size, and/or iterative reconstruction. Unless otherwise specified, incidental findings do not require dedicated imaging follow-up. COMPARISON: No prior exam. FINDINGS: SOFT TISSUE: Soft tissue swelling is seen along the anterior inferior aspect of the mandible. BONES: Minimal nasal bone fracture is possible. No mandibular fracture or other facial bone fracture. ORBITS: The globes are intact. No intraorbital hemorrhage or mass. SINUSES: Mild polypoid mucosal thickening noted in the paranasal sinuses. IMPRESSION: Question the possibility of minimal nasal bone fracture. Recommend correlation with point tenderness. Mandible appears intact with soft tissue swelling present
[2024-12-23 08:22] LABS: Absolute Basophils 0.1 K/uL (0-0.5); Absolute Eosinophils 0.2 K/uL (0-0.5); Absolute Lymphocytes (CBC) 1.1 K/uL (0.7-4.9); Absolute Monocytes 0.7 K/uL (0.1-1.3); Absolute Neutrophil 5.1 K/uL (1.8-8.0); Basophils % 1.9 % (0-1.3); Eosinophils % 3.3 % (0-4.4); Hematocrit 50.5 % (39.6-49.0); Hemoglobin 16.8 g/dL (13.6-17.9); Lymphocytes % 14.6 % (15.3-44.8); MCHC 33.3 g/dL (32.0-36.0); MCV 84.3 fL (80-100); MPV 9.3 fL (7.6-11.3); Monocytes % 9.6 % (3.3-12.3); Neutrophils % 70.6 % (41.7-73.7); Nucleated Red Blood Cells % 0.1 % (0-0); Platelets 288 thou/uL (152-406); RBC Red Blood Cell Count 5.99 M/uL (4.33-5.43); Red Cell Distribution Width 18.1 % (12.1-15.2)
[2024-12-23 08:26] LABS: PT Prothrombin Time 11.1 SECONDS (10-13.0); PTT, Activated Partial Thromb 32.2 SECONDS (27.2-37.4); Protime INR 0.97
[2024-12-23 08:33] LABS: Albumin 3.5 g/dL (3.4-5.0); Albumin/Globulin Ratio 0.8 (1.1-1.8); Bilirubin Direct 0.2 mg/dL (0-0.2); Bilirubin Indirect, Calculated 0.3 mg/dL (0.2-0.8); Bilirubin Total 0.5 mg/dL (0.2-1.0); Globulin 4.2 g/dL (2.3-3.5); Magnesium 1.9 mg/dL (1.6-2.4); Protein, Total 7.7 g/dL (6.4-8.2)
[2024-12-23 08:36] LABS: Troponin High Sensitivity 127.7 pg/mL (<58.9)
[2024-12-23] MEDS ORDERED: ONDANSETRON 4 MG/2 ML VIAL ONE (09:15)
[2024-12-23] MEDS ORDERED: LIDOCAINE 1% 20 ML MDV ONE (09:15)
[2024-12-23] MEDS ORDERED: MORPHINE 4 MG/ML SYR ONE (09:15)
--- NOTE | 2024-12-23 09:57 | EDPHYS ---
Physician Documentation [facility] Name: Conrad Sandoval Jr Age: 53 yrs Sex: Male : 1970 Arrival Date: 12/23/2024 Time: 07:14 Bed 18 Private MD: ED Physician Power Martin HPI: 12/23 07:41 This 53 yrs old Male presents to ER via Unassigned with complaints of Syncope, rn Laceration To Chin. 07:41 The patient has experienced syncope. Onset: The symptoms/episode began/occurred this rn morning. Duration: The patient has had multiple episodes. Associated injury: Head/face:. Current symptoms: Currently, the patient is not experiencing any symptoms. Patient reports diagnosed with pneumonia recently in [place], still coughing, reports history of syncope during coughing fits. Has had 2 syncopal episodes this morning while coughing. First hit right brow, second he struck chin and sustained a laceration to the chin. Patient reports headache and pain to chin but no other injury or pain. Does not take blood thinners.. Historical: - Allergies: 07:20 No Known Allergies; aa5 - PMHx: 07:20 Diabetes - IDDM; aa5 07:20 Cough syncope; aa5 - Immunization history:: Adult Immunizations unknown. - Infectious Disease History:: Denies. - Social history:: Smoking status: Patient denies any tobacco usage or history of. - Family history:: not pertinent. - Hospitalizations: : No recent hospitalization is reported. ROS: 07:41 Constitutional: Negative for fever, chills, and weight loss, ENT: Positive for right rn forehead and mandibular pain and injury Neck: Negative for injury, pain, and swelling, Cardiovascular: Negative for chest pain, palpitations, and edema, Respiratory: Negative for shortness of breath, wheezing, and pleuritic chest pain, Abdomen/GI: Negative for abdominal pain, nausea, vomiting, diarrhea, and constipation, Back: Negative for injury and pain, MS/Extremity: Negative for injury and deformity, Skin: Positive for laceration to chin Neuro: Negative for headache, weakness, numbness, tingling, and seizure, Exam: 07:41 Constitutional: This is a well developed, well nourished patient who is awake, alert, rn and in no acute distress. Head/Face: Right forehead hematoma without laceration.2 cm superficial laceration to the chin. Eyes: Pupils equal round and reactive to light, extra-ocular motions intact. Lids and lashes normal. Conjunctiva and sclera are non-icteric and not injected. Cornea within normal limits. Periorbital areas with no swelling, redness, or edema. ENT: 3 cm laceration inside mouth inner lip mucosa. No evidence of alveolar ridge fracture. Left lower front tooth loose but not completely subluxed. Patient reports this is baseline since fall 2 weeks ago. Reports chronic dental problems after drug use. No acute subluxation or tooth fracture noted. Neck: No midline tenderness Chest/axilla: No rib tenderness or crepitus Cardiovascular: Regular rate and rhythm. No pulse deficits. Respiratory: No increased work of breathing, no retractions or nasal flaring. MS/ Extremity: Pulses equal, no cyanosis. Neurovascular intact. Full, normal range of motion. Equal circumference. Neuro: Awake and alert, GCS 15, oriented to person, place, time, and situation. Cranial nerves II-XII grossly intact. Motor strength 5/5 in all extremities. Sensory grossly intact. Cerebellar exam normal 10:15 ECG was reviewed by the Attending Physician. rn Vital Signs: 07:20 BP 126 / 80; Pulse 86; Resp 18 S; Temp 97.5(TE); Pulse Ox 96% on R/A; Weight 114.31 kg aa5 (R); Height 6 ft. 0 in. (R); 08:39 BP 134 / 75; Pulse 71; Resp 16 S; Pulse Ox 95% on R/A; aa5 09:36 BP 110 / 81; Pulse 70; Resp 20 S; Pulse Ox 95% on R/A; aa5 07:20 Body Mass Index 34.18 (114.31 kg, 182.88 cm) aa5 Laceration: 09:52 Wound Repair of 2cm ( 0.8in ) subcutaneous laceration to chin. Distal rn neuro/vascular/tendon intact. Anesthesia: Wound infiltrated with 2 mls of 1% lidocaine. Wound prep: Extensive cleansing with betadine. Skin closed with 3 5-0 Prolene using interrupted sutures and sterile technique. Patient tolerated well. 09:52 Wound Repair of 3cm ( 1.2in ) subcutaneous laceration to mouth, inner lip. Distal rn neuro/vascular/tendon intact. Anesthesia: Wound infiltrated with 3 mls of 1% lidocaine. Wound prep: Extensive cleansing with betadine, Wound irrigation with saline by me, Wound explored. Skin closed with 5 4-0 chromic gut using interrupted sutures and sterile technique. Patient tolerated well. MDM: 07:21 Medical Screening Exam initiated rn 09:52 Differential Diagnosis: Syncope, cough syncope, cardiac event, laceration.. rn 09:55 Data reviewed: vital signs, nurses notes, lab test result(s), EKG, radiologic studies, rn and as a result, I will admit patient. Consideration of Admission/Observation Patient was admitted/placed on observation. Escalation of care including admission/observation considered. Counseling: I had a detailed discussion with the patient and/or guardian regarding the historical points, exam findings, and any diagnostic results supporting the discharge/admit diagnosis, lab results, radiology results, the need for further work-up and treatment in the hospital. ED course: Troponin positive. Denies any chest pain. Story sounded more like cough syncope but elevated troponin raises concern for cardiac events. Will admit to hospitalist for cardiac consultation. 12/23 07:23 Order name: Basic Metabolic Panel; Complete Time: 08:40 rn 12/23 07:23 Order name: CBC with Diff; Complete Time: 08:40 rn 12/23 07:23 Order name: Hepatic Function; Complete Time: 08:40 rn 12/23 07:23 Order name: Magnesium; Complete Time: 08:40 rn 12/23 07:23 Order name: Protime (+inr); Complete Time: 08:40 rn 12/23 07:23 Order name: Ptt, Activated; Complete Time: 08:40 rn 12/23 07:23 Order name: Troponin High Sensitivity; Complete Time: 08:40 rn 12/23 10:32 Order name: Urinalysis w/ reflexes EDMS 12/23 10:32 Order name: Basic Metabolic Panel EDMS 12/23 10:32 Order name: Basic Metabolic Panel EDMS 12/23 10:32 Order name: Basic Metabolic Panel EDMS 12/23 10:32 Order name: Basic Metabolic Panel EDMS 12/23 10:32 Order name: CBC with Automated Diff EDMS 12/23 10:32 Order name: CBC with Automated Diff EDMS 12/23 10:32 Order name: CBC with Automated Diff EDMS 12/23 10:32 Order name: CBC with Automated Diff EDMS 12/23 10:32 Order name: Magnesium EDMS 12/23 10:32 Order name: Magnesium EDMS 12/23 10:32 Order name: Magnesium EDMS 12/23 10:32 Order name: Magnesium EDMS 12/23 10:32 Order name: NT PRO-BNP EDMS 12/23 10:32 Order name: NT PRO-BNP EDMS 12/23 10:32 Order name: Troponin High Sensitivity EDMS 12/23 10:32 Order name: Troponin High Sensitivity EDMS 12/23 10:32 Order name: Troponin High Sensitivity EDMS 12/23 10:32 Order name: Troponin High Sensitivity EDMS 12/23 10:51 Order name: Lipid Profile EDMS 12/23 10:51 Order name: Lipid Profile EDMS 12/23 07:23 Order name: CT Head Brain wo Cont; Complete Time: 08:17 rn 12/23 07:23 Order name: CT Facial Bones W/O Con; Complete Time: 08:17 rn 12/23 07:23 Order name: Chest Single View XRAY; Complete Time: 08:17 rn 12/23 10:33 Order name: Echo Color Flow Mapping EDCO 12/23 10:36 Order name: Chest Angio EDCO 12/23 10:30 Order name: CONS Physician Consult EDCO 12/23 07:23 Order name: Cardiac monitoring; Complete Time: 08:24 rn 12/23 07:23 Order name: EKG - Nurse/Tech; Complete Time: 08:14 rn 12/23 07:23 Order name: IV Saline Lock; Complete Time: 08:14 rn 12/23 07:23 Order name: Labs collected and sent; Complete Time: 08:14 rn 12/23 07:23 Order name: NPO; Complete Time: 07:48 rn 12/23 07:23 Order name: O2 Per Protocol; Complete Time: 07:48 rn 12/23 07:23 Order name: O2 Sat Monitoring; Complete Time: 07:48 rn EC:15 Rate is 72 beats/min. Rhythm is regular. QRS [place] is Normal. AR interval is normal. QRS rn interval is normal. QT interval is normal. No Q waves. T waves are Normal. No ST changes noted. Clinical impression: Normal ECG. Interpreted by me. Reviewed by me. Administered Medications: 09:24 Drug: Ondansetron IVP 4 mg IVP once; over 2 minutes Route: IVP; Site: left antecubital; aa5 09:35 Follow up: Response: No adverse reaction aa5 09:26 CANCELLED (Physician Discretion): morphineor iv 2 mg IVP once over 4 mins aa5 09:27 Drug: morphine IVP or IV 4 mg IVP once over 4 mins Route: IVP; Infused Over: 4 mins; aa5 Site: left antecubital; 09:35 Follow up: Response: No adverse reaction aa5 09:36 Drug: Lidocaine Infiltration (1 %) 1 vials 20 ml Infiltration once; to bedside {Note: aa5 administered by MD during laceration repair .} Volume: 20 ml; Route: Infiltration; 10:28 Drug: Aspirin PO 81 mg PO once Route: PO; aa5 11:16 Follow up: Response: No adverse reaction aa5 Disposition Summary: 12/23/24 09:57 Hospitalization Ordered Notes: Hospitalization Status: Observation rn Provider: Vishnu Tucker rn Condition: Stable rn Problem: new rn Symptoms: have improved rn Bed/Room Type: Standard rn Location: Telemetry/MedSurg (Inpatient)(12/23/24 14:49) 6 Room Assignment: 416(12/23/24 14:49) [facility] Diagnosis - Syncope rn - Inner lip laceration rn - Chin laceration rn Forms: - Medication Reconciliation Form rn - SBAR form rn - Leadership Thank You Letter rn Signatures: Dispatcher [employer] EDMS Power Martin MD MD rn Calderon, Audri, RN RN aa5 Autumn Castillo RN RN ll1 Bobbi Holbrook [facility] Corrections: (The following items were deleted from the chart) 07:23 07:23 BASIC METABOLIC PANEL+C.LAB.BRZ ordered. EDMS EDMS 07:23 07:23 CBC+H.LAB.BRZ ordered. EDMS EDMS 07:23 07:23 HEPATIC FUNCTION+C.LAB.BRZ ordered. EDMS EDMS 07:23 07:23 MAGNESIUM+C.LAB.BRZ ordered. EDMS EDMS 07:23 07:23 PROTIME (+INR)+COAG.LAB.BRZ ordered. EDMS EDMS 07:24 07:23 PTT, ACTIVATED+COAG.LAB.BRZ ordered. EDMS EDMS 07:24 07:23 Troponin High Sensitivity+C.LAB.BRZ ordered. EDCO EDMS 07:24 07:24 Chest Single View+RAD.RAD.BRZ ordered. EDCO EDMS 07:43 07:41 Constitutional: Negative for fever, chills, and weight loss, ENT: Positive for rn right forehead and mandibular pain and injury Neck: Negative for injury, pain, and swelling, Cardiovascular: Negative for chest pain, palpitations, and edema, Respiratory: Negative for shortness of breath, cough, wheezing, and pleuritic chest pain, Abdomen/GI: Negative for abdominal pain, nausea, vomiting, diarrhea, and constipation, Back: Negative for injury and pain, MS/Extremity: Negative for injury and deformity, Skin: Positive for laceration to chin Neuro: Negative for headache, weakness, numbness, tingling, and seizure, rn 09: 09:18 morphine IVP or IV 2 mg IVP once over 4 mins ordered. aa5 : 09:26 morphine IVP or IV 2 mg IVP once over 4 mins ordered. [place] [id number] 09:53 07:41 Constitutional: This is a well developed, well nourished patient who is awake, rn alert, and in no acute distress. Head/Face: Right forehead hematoma without laceration. 1.5 cm superficial laceration to the chin. Eyes: Pupils equal round and reactive to light, extra-ocular motions intact. Lids and lashes normal. Conjunctiva and sclera are non-icteric and not injected. Cornea within normal limits. Periorbital areas with no swelling, redness, or edema. ENT: 1 cm laceration inside mouth inner lip mucosa. No evidence of alveolar ridge fracture Neck: No midline tenderness Chest/axilla: No rib tenderness or crepitus Cardiovascular: Regular rate and rhythm. No pulse deficits. Respiratory: No increased work of breathing, no retractions or nasal flaring. MS/ Extremity: Pulses equal, no cyanosis. Neurovascular intact. Full, normal range of motion. Equal circumference. Neuro: Awake and alert, GCS 15, oriented to person, place, time, and situation. Cranial nerves II-XII grossly intact. Motor strength 5/5 in all extremities. Sensory grossly intact. Cerebellar exam normal rn 09:55 07:41 Constitutional: This is a well developed, well nourished patient who is awake, rn alert, and in no acute distress. Head/Face: Right forehead hematoma without laceration.2 cm superficial laceration to the chin. Eyes: Pupils equal round and reactive to light, extra-ocular motions intact. Lids and lashes normal. Conjunctiva and sclera are non-icteric and not injected. Cornea within normal limits. Periorbital areas with no swelling, redness, or edema. ENT: 3 cm laceration inside mouth inner lip mucosa. No evidence of alveolar ridge fracture Neck: No midline tenderness Chest/axilla: No rib tenderness or crepitus Cardiovascular: Regular rate and rhythm. No pulse deficits. Respiratory: No increased work of breathing, no retractions or nasal flaring. MS/ Extremity: Pulses equal, no cyanosis. Neurovascular intact. Full, normal range of motion. Equal circumference. Neuro: Awake and alert, GCS 15, oriented to person, place, time, and situation. Cranial nerves II-XII grossly intact. Motor strength 5/5 in all extremities. Sensory grossly intact. Cerebellar exam normal rn 13:16 09:57 Telemetry/MedSurg (observation) rn ll1 13:16 09:57 rn ll1 14:49 13:16 [facility] ER HOLD ll1 bc6 14:49 13:16 ERHOLD- ll1 bc6
--- NOTE | 2024-12-23 09:57 | ER ---
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 Pt states "I started coughing and I passed out and hit my forehead but the second time I passed out today I just remember waking up on the floor". 07:20 Coronavirus screen: cough unrelated to allergies. Ebola Screen: Patient denies travel aa5 to an Ebola-affected area in the 21 days before illness onset. Initial Sepsis Screen: Does the patient meet any 2 criteria? No. Patient's initial sepsis screen is negative. Does the patient have a suspected source of infection? No. Patient's initial sepsis screen is negative. Risk Assessment: Do you want to hurt yourself or someone else? Patient reports no desire to harm self or others. Onset of symptoms was December 23, 2024. 07:20 Method Of Arrival: EMS: [facility] aa5 07:20 Acuity: ELIAN 3 aa5 07:20 Care prior to arrival: Glucose check: 134. aa5 Historical: - Allergies: 07:20 No Known Allergies; aa5 - PMHx: 07:20 Diabetes - IDDM; aa5 07:20 Cough syncope; aa5 - Immunization history:: Adult Immunizations unknown. - Infectious Disease History:: Denies. - Social history:: Smoking status: Patient denies any tobacco usage or history of. - Family history:: not pertinent. - Hospitalizations: : No recent hospitalization is reported. Screenin:20 [facility] ED Fall Risk Assessment (Adult) History of falling in the last 3 months, aa5 including since admission Yes- fall prone (multiple falls) (3 pts) Confusion or Disorientation No (0 pts) Intoxicated or Sedated No (0 pts) Impaired Gait No (0 pts) Mobility Assist Device Used No (0 pt) Altered Elimination No (0 pt) Score/Fall Risk Level 3 or more points = High Risk Oriented to surroundings, Maintained a safe environment, Educated pt \\T\\ family on fall prevention, incl call for assistance when getting out of bed, Assessed \\T\\ reinforced patient's understanding of fall precautions. Abuse screen: Denies threats or abuse. Nutritional screening: No deficits noted. Tuberculosis screening: No symptoms or risk factors identified. Assessment: 07:20 General: Appears comfortable, Behavior is calm, cooperative. Pain: Complains of pain in aa5 chin Pain currently is 7 out of 10 on a pain scale. Quality of pain is described as aching, Pain began post syncope/fall today Is continuous. Neuro: Level of Consciousness is awake, alert, obeys commands, Oriented to person, place, time, situation, [place] are equal bilaterally Moves all extremities. Speech is normal, Facial symmetry appears normal. Cardiovascular: Heart tones S1 S2 present Rhythm is regular. Respiratory: Reports cough since being dx with Pneumonia on December 02. Airway is patent Respiratory effort is even, unlabored, Respiratory pattern is regular, symmetrical. GI: Abdomen is round non-distended, Bowel sounds present X 4 quads. Abd is soft and non tender X 4 quads. : No signs and/or symptoms were reported regarding the genitourinary system. EENT: No signs and/or symptoms were reported regarding the EENT system. Derm: Skin is pink, warm \\T\\ dry. Mild abrasion noted to right side of forehead and right knee. Laceration noted to chin, approximately 0.5in long, mild bleeding, bleeding controlled. Musculoskeletal: Range of motion: intact in all extremities. 07:55 Reassessment: Patient is alert, oriented x 3, equal unlabored respirations, skin aa5 warm/dry/pink. Pt back from radiology. . 09:36 Reassessment: Patient is alert, oriented x 3, equal unlabored respirations, skin aa5 warm/dry/pink. MD at bedside . Vital Signs: 07:20 BP 126 / 80; Pulse 86; Resp 18 S; Temp 97.5(TE); Pulse Ox 96% on R/A; Weight 114.31 kg aa5 (R); Height 6 ft. 0 in. (R); 08:39 BP 134 / 75; Pulse 71; Resp 16 S; Pulse Ox 95% on R/A; aa5 09:36 BP 110 / 81; Pulse 70; Resp 20 S; Pulse Ox 95% on R/A; aa5 07:20 Body Mass Index 34.18 (114.31 kg, 182.88 cm) aa5 ED Course: 07:20 Patient arrived in ED. aa5 07:20 Arm band placed on. aa5 07:20 Patient has correct armband on for positive identification. Bed in low position. Call aa5 light in reach. Side rails up X 1. 07:20 Client placed on continuous cardiac and pulse oximetry monitoring. NIBP monitoring aa5 applied. bus monitor on. Pulse ox on. NIBP on. 07:21 Power Martin MD is Attending Physician. rn 07:25 Mandi Solorzano RN is Primary Nurse. aa5 07:40 Chest Single View XRAY In Process Unspecified. EDMS 07:46 Triage completed. aa5 07:48 CT Head Brain wo Cont In Process Unspecified. EDMS 07:48 CT Facial Bones W/O Con In Process Unspecified. EDMS 08:00 Initial lab(s) drawn, by me, sent to lab. EKG done, by ED staff, reviewed by Power Martin MD. Inserted saline lock: 20 gauge in left antecubital area, using aseptic technique. Blood collected. Flushed with 10 mL NS. 08:18 No provider procedures requiring assistance completed. aa5 09:45 Assist provider with laceration repair on chin using sutures. Set up tray. Performed by eugenia Martin MD Dressed with band aid, Patient tolerated well. Laceration to inside of lower lip also repaired by Dr. Martin using sutures. 09:56 Vishnu Tucker is Hospitalizing Provider. rn 10:49 Chest Angio In Process Unspecified. EDMS 11:16 Patient admitted, IV remains in place. aa5 Administered Medications: 09:24 Drug: Ondansetron IVP 4 mg IVP once; over 2 minutes Route: IVP; Site: left antecubital; aa5 09:35 Follow up: Response: No adverse reaction aa5 09:26 CANCELLED (Physician Discretion): morphineor iv 2 mg IVP once over 4 mins aa5 09:27 Drug: morphine IVP or IV 4 mg IVP once over 4 mins Route: IVP; Infused Over: 4 mins; aa5 Site: left antecubital; 09:35 Follow up: Response: No adverse reaction aa5 09:36 Drug: Lidocaine Infiltration (1 %) 1 vials 20 ml Infiltration once; to bedside {Note: aa5 administered by MD during laceration repair .} Volume: 20 ml; Route: Infiltration; 10:28 Drug: Aspirin PO 81 mg PO once Route: PO; aa5 11:16 Follow up: Response: No adverse reaction aa5 Medication: 08:15 VIS not applicable for this client. aa5 Outcome: 09:57 Decision to Hospitalize by Provider. rn 11:16 Admitted to ER Hold. Please see [facility] for further documentation. aa5 11:16 Condition: stable 11:16 Instructed on the need for admit, Demonstrated understanding of instructions, 16:15 Patient left the ED. aa5 Signatures: Dispatcher [employer] EDMS Power Martin MD MD rn Calderon, Audri, RN RN aa5 Shannan Alvarez RN RN db Corrections: (The following items were deleted from the chart) 07:47 07:20 Chief complaint: EMS states: Pt had syncopal episode approximately 45mins TANK TENDER, aa5 hit chin, mild bleeding noted to chin, bleeding controlled. Pt states "I started coughing and I passed out and hit my forehead but the second time I passed out today I just remember waking up on the floor". aa5 08:42 08:39 Pulse 71bpm; Resp 16bpm; Spontaneous; Pulse Ox 95% RA; aa5 aa5 19:16 16:37 Patient left the ED. db aa5
[2024-12-23] MEDS ORDERED: ASPIRIN 81 MG CHEWABLE TABLET ONE (10:17)
--- NOTE | 2024-12-23 10:26 | P.HP ---
Certification for Inpatient Patient admitted to: Observation Practitioner: I am a practitioner with admitting privileges, knowledge of patient current condition, hospital course, and medical plan of care. Services: Services provided to patient in accordance with Admission requirements found in Title 42 Section 412.3 of the Code of Federal Regulations Patient History Date of Service: 12/23/24 Reason for admission: Syncopal episode, NSTEMI History of Present Illness: 53-year-old male with a past medical history of hypertension,Presents to the emergency room with syncopal episode. He reports recently being diagnosed with pneumonia, reports frequent coughing, syncopal episodes happened during coughing. He reports recently starting on blood pressure medication 2 weeks ago. He does not know the name. He denies chest pain, shortness of breath. Fever. he reports yncopal episode with LOC/ fall with facial laceration, chin laceration, forehead laceration from a prior fall. He reports being unconscious about 5 to 10 seconds. He reports waking up in a pool of blood. ER placed 5 sutures to the inner lower lip. Plan to admit for syncopal episode with loss of consciousness, cough, fall with chin/lip laceration. Allergies No Known Allergies Allergy (Verified 03/18/21 03:06) Home Medications: Insulin Degludec [Tresiba Flextouch U-200] 40 unit SQ DAILY 03/18/21 Metformin ER [Glucophage ER*] 500 mg PO BID 03/18/21 cefuroxime axetiL [Cefuroxime] 500 mg PO BID 03/18/21 Albuterol Inhaler [Ventolin Inhaler*] 2 puff IH Q6H PRN #1 hfa.aer.ad 03/21/21 Apixaban [Eliquis] 5 mg PO BID #20 tablet 03/21/21 Ascorbic Acid [Vitamin C*] 500 mg PO QID #30 tablet 03/21/21 Benzonatate [Tessalon Perle*] 100 mg PO TID PRN #30 cap 03/21/21 Melatonin 5 mg PO BEDTIME PRN PRN #20 tablet 03/21/21 predniSONE [Deltasone] 20 mg PO BID #20 tab 03/21/21 - Past Medical/Surgical History Diabetic: Yes -: Diabetes mellitus type 2-insulin dependent -: Hypertension -: none Psychosocial/ Personal History: 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 Left lower front tooth loose) Neck: Supple, 2+ carotid pulse no bruit, JVD not distended Respiratory: Clear to auscultation bilaterally, Normal air movement Cardiovascular: Normal pulses, Regular rate/rhythm Capillary refill: <2 Seconds Gastrointestinal: Normal bowel sounds, Soft and benign Musculoskeletal: No clubbing, No swelling Integumentary: No breakdown, No significant lesion Neurological: Normal speech, Normal strength at 5/5 x4 extr - Studies Laboratory Data (last 24 hrs) 12/23/24 12/23/24 12/23/24 08:00 08:00 08:00 WBC 7.30 Hgb 16.8 Hct 50.5 H Plt Count 288 PT 11.1 INR 0.97 APTT 32.2 Sodium 135 L Potassium 4.0 BUN 15 Creatinine 1.16 Glucose 162 H Magnesium 1.9 Total Bilirubin 0.5 AST 44 H ALT 51 Alkaline Phosphatase 82 Assessment and Plan - Problems (Diagnosis) (1) Syncopal episodes Current Visit: No Status: Acute (2) NSTEMI (non-ST elevated myocardial infarction) Current Visit: No Status: Acute (3) Hypertension Current Visit: No Status: Chronic (4) Lip laceration Current Visit: No Status: Acute (5) Glucosuria Current Visit: Yes Status: Acute (6) Transaminitis Current Visit: Yes Status: Acute - Plan Admit to [facility] NSTEMI Syncopal episode cardiology to consult N.p.o. after midnight for cardiology to eval Telemetry Echo ordered CT of the chest PE protocol Trend troponin, BNP Troponin 127, repeat 58.9 EKG normal sinus rhythm rate [address] abnormality Orthostatic vital signs Normal saline, Aspirin, statin, resume home antihypertensive lipid panel Recent diagnosis of pneumonia Coughing, likely cause of syncopal episode Cough suppressants, budesonide Glucose urea Hemoglobin A1c Blood glucose monitoring Transaminitis AST is 44 Full code DVT Lovenox Diet cardiac Disposition Home independent prior Discharge Plan: Home - Advance Directives Does patient have a Living Will: No Does patient have a Durable POA for Healthcare: No - Code Status/Comfort Care Code Status: Full Code Critical Care: No Time Spent Managing Pts Care (In Minutes): 55
[2024-12-23] MEDS ORDERED: ONDANSETRON 4 MG/2 ML VIAL IV PRN (10:28)
[2024-12-23] MEDS ORDERED: ACETAMINOPHEN 500 MG TAB PO PRN (10:28)
[2024-12-23] MEDS: BUDESONIDE 0.5 MG/2 ML NEB NEB SCH (10:56)
[2024-12-23] MEDS ORDERED: GUAIFENESIN/CODEINE 5ML UCUP PO PRN (10:56)
--- NOTE | 2024-12-23 11:00 | RAD REPORT ---
EXAMINATION: CTA CHEST CLINICAL INDICATION: syncope, coughing TECHNIQUE: This examination was performed according to an angiographic protocol with 3D post-processi ng. This involves 3D reconstructions, MIPs, volume rendered images and/or shaded surface rendering. One or more of the following dose reduction techniques were used: Automated exposure control, adjustm ent of the mA and/or kV according to patient size, and/or iterative reconstruction. Unless otherwise specified, incidental findings do not require dedicated imaging follow-up. COMPARISON: No prior exam. FINDINGS: THORACIC AORTA: Normal caliber and configuration. PULMONARY ARTERIES: Normal caliber. No evidence of pulmonary emboli to the subsegmental level. LUNGS: Mild fibroemphysematous changes with linear atelectasis in both lung bases. PLEURA: No pleural effusion. No pneumothorax. MEDIASTINUM AND LYMPH NODES: No mediastinal mass or fluid collection. Normal size mediastinal, hilar, and axillary lymph nodes. OSSEOUS STRUCTURES AND CHEST WALL: Intact. UPPER ABDOMEN: Fatty liver. IMPRESSION: No significant flow abnormality detected. COPD.
[2024-12-23] MEDS ORDERED: NA CHLORIDE 0.9% 1,000 ML ONE (14:28)
[2024-12-23] MEDS: NA CHLORIDE 0.9% 1,000 ML IV SCH (14:40)
[2024-12-23] MEDS ORDERED: HYDROCODONE/APAP 7.5/325 MG TAB PO PRN (14:50)
[2024-12-23] MEDS: MORPHINE 2 MG/ML SYR IV PRN (15:04)
[2024-12-23 15:32] VITALS: BMI 34.2
[2024-12-23] MEDS: ENOXAPARIN 40 MG/0.4 ML SQ SCH (17:34)
[2024-12-23 19:52] LABS: Specific Gravity > 1.030 (1.005-1.030); Sqamous Epithelial None Seen /HPF (None Seen); Urine Bacteria None Seen /HPF (<20); Urine Bilirubin NEGATIVE (Negative); Urine Blood Negative (Negative); Urine Clarity Clear (Clear); Urine Color Yellow (Yellow); Urine Culture Reflex Order NOT NEEDED; Urine Glucose 3+ (Negative); Urine Ketones NEGATIVE (Negative); Urine Microscopic Reflex YN ORDER UMIC; Urine Mucus Slight /HPF (None Seen); Urine Nitrite NEGATIVE (Negative); Urine Protein 1+ (Negative); Urine RBC <5 /HPF (None Seen); Urine Urobilinogen Normal (Normal); Urine WBC <5 /HPF (<5)
[2024-12-23] MEDS: ATORVASTATIN 20 MG TAB PO SCH (21:41)
[2024-12-24 06:25] LABS: Absolute Eosinophils 0.2 K/uL (0-0.5); Absolute Lymphocytes (CBC) 1.4 K/uL (0.7-4.9); Basophils % 0.4 % (0-1.3); Eosinophils % 1.3 % (0-4.4); Hematocrit 49.2 % (39.6-49.0); Hemoglobin 16.8 g/dL (13.6-17.9); Lymphocytes % 12.1 % (15.3-44.8); MCH 28.5 pg (27.0-35.0); MCHC 34.1 g/dL (32.0-36.0); MCV 83.5 fL (80-100); MPV 9.4 fL (7.6-11.3); Neutrophils % 77.2 % (41.7-73.7); Platelets 246 thou/uL (152-406); RBC Red Blood Cell Count 5.89 M/uL (4.33-5.43)
[2024-12-24 06:30] LABS: Anion Gap 7.1 mEq/L (5.0-15.0); Magnesium 1.8 mg/dL (1.6-2.4); Potassium 4.1 mEq/L (3.5-5.1)
[2024-12-24] MEDS: APIXABAN 5 MG TABLET PO SCH (08:42)
[2024-12-24] MEDS: SERTRALINE HCL 50 MG TAB PO SCH (08:42)
[2024-12-24] MEDS: ALPRAZOLAM 0.5 MG TABLET PO SCH (08:43)
[2024-12-24] MEDS: ASPIRIN EC 81 MG TAB PO SCH (08:43)
[2024-12-24] MEDS: LOSARTAN POTASSIUM 50 MG TABLET PO SCH (08:43)
[2024-12-24] MEDS: CETIRIZINE HCL 5 MG TABLET PO SCH (08:44)
[2024-12-24] MEDS ORDERED: ASPIRIN EC 81 MG TAB PO SCH (09:00)
[2024-12-24] MEDS ORDERED: REGADENOSON 0.4 MG/5 ML SYR IV ONE (12:48)
--- NOTE | 2024-12-24 13:15 | ECHO ---
HEIGHT: 6 ft 0 in WEIGHT: 252 lb 0 oz DATE OF STUDY: 12/24/[address]: Salena Back NP 2-DIMENSIONAL: YES M.MODE: YES DOPPLER: YES COLOR FLOW: YES TDS: YES PORTABLE: YES DEFINITY: BUBBLE STUDY: DIAGNOSIS: NON ST ELEVATION MYOCARDIAL INFARCTION CARDIAC HISTORY: CATHERIZATION: NO SURGERY: NO PROSTHETIC VALVE: NO PACEMAKER: NO MEASUREMENTS (cm) DIASTOLIC (NORMALS) SYSTOLIC (NORMALS) IVSd 1.2 (0.6-1.2) LA Diam 3.3 (1.9-4.0) LVEF 60% LVIDd 3.5 (3.5-5.7) LVIDs 2.4 (2.0-3.5) %FS 31% LVPWd 1.3 (0.6-1.2) Ao Diam 3.0 (2.0-3.7) 2 DIMENSIONAL ASSESSMENT: RIGHT ATRIUM: NORMAL LEFT ATRIUM: NORMAL RIGHT VENTRICLE: NORMAL LEFT VENTRICLE: NORMAL TRICUSPID VALVE: NORMAL MITRAL VALVE: NORMAL PULMONIC VALVE: NORMAL AORTIC VALVE: NORMAL PERICARDIAL EFFUSION: NONE AORTIC ROOT: NORMAL LEFT VENTRICULAR WALL MOTION: NORMAL DOPPLER/COLOR FLOW: NORMAL COMMENTS: 1. NORMAL LEFT VENTRICULAR SYSTOLIC FUNCTION, EJECTION FRACTION 60-65%, NORMAL WALL MOTION 2. NORMAL DIASTOLIC FUNCTION TECHNOLOGIST: EDIN HOFF
--- NOTE | 2024-12-24 13:26 | EKG ---
Test Date: 2024-12-23 Test Time: 07:55:38 Referral Nurse: SOBIA MEASUREMENT RESULTS: Intervals: Rate: 72 MA: 136 QRSD: 92 QT: 364 QTc: 398 [place]: P: 43 MA: 136 QRS: -9 T: 5 INTERPRETIVE STATEMENTS: Normal sinus rhythm Normal ECG Compared to ECG 03/17/2021 22:55:17 Sinus tachycardia no longer present Electronically Signed On 12-24-24 13:19:29 CDT by Zelalem Painter
--- NOTE | 2024-12-24 13:30 | TREADPHA ---
DX: NON ST ELEVATION MYOCARDIAL INFARCTION Date of Study: 12/24/2024 Ht: 6' 0 " Wt: 252 lb 0 oz Consulting Physician: FABIANA MEDICATIONS: TYLENOL, NORCO, XANAX, ELIQUIS, ASPIRIN, LIPITOR, PULMICORT, ROBITUSSIN, MOPRHINE, ZOFRAN, ZOLOFT HISTORY: SYNCOPE PHYSICIAL EXAMINATION: RESTING B.P.: 126/71 RESTING H.R.: 80 RESTING EKG: NORMAL SINUS RHYTHM PROTOCOL: PHARMACOLOGIC EXERCISE TIME: 3:30 B.P. AT PEAK STRESS: 120/72 IMPRESSION: LEXISCAN INJECTED. CARDIOLITE INJECTED - SEE NUCLEAR MEDICINE REPORT. COMPLAINTS OF COUGH AND SLIGHT PRESSURE ON CHEST. NO ARRHYTHMIAS.
--- NOTE | 2024-12-24 13:41 | P.CNS ---
Date of Consult: 12/24/24 Chief Complaint: Syncopal episode, NSTEMI History of Present Illness: Patient with PMH of HTN, Testosterone injections, presented with syncopal episode after having vigorous coughing, denies chest pain, no palpitations, no SOB, no MARVIN. Allergies No Known Allergies Allergy (Verified 03/18/21 03:06) Home medications list reviewed: Yes Home Medications: Apixaban [Eliquis] 5 mg PO BID #20 tablet 03/21/21 Alprazolam [Xanax] 0.5 mg PO BID 12/23/24 Aspirin [Low Dose Aspirin EC] 81 mg PO DAILY 12/23/24 Atorvastatin Calcium 20 mg PO BEDTIME 12/23/24 Cetirizine HCl [All Day Allergy] 10 mg PO DAILY 12/23/24 Losartan Potassium 25 mg PO DAILY 12/23/24 Sertraline [Zoloft*] 50 mg PO DAILY 12/23/24 Sildenafil Citrate [Viagra] 100 mg PO PRN 12/23/24 - Past Medical/Surgical History Diabetic: Yes -: Diabetes mellitus type 2 -: Hypertension -: Cough syncope -: none Psychosocial/ Personal History: Works in [employer] at [employer], lives alone - Family History Mother Medical History: Diabetes Father Medical History: Diabetes - Social History Smoking Status: Unknown if ever smoked Alcohol use: No CD- Drugs: No Caffeine use: Yes Place of Residence: Home Review of Systems 10-point ROS is otherwise unremarkable Physical Examination Temp Pulse Resp BP Pulse Ox 98.1 F 73 18 132/75 96 12/24/24 12:00 12/24/24 12:00 12/24/24 12:35 12/24/24 12:00 12/24/24 12:35 General: Alert, In no apparent distress HEENT: Atraumatic, PERRLA, Mucous membr. moist/pink, EOMI, Sclerae nonicteric Neck: Supple, 2+ carotid pulse no bruit, No LAD, Without JVD or thyroid abnormality Respiratory: Clear to auscultation bilaterally, Normal air movement Cardiovascular: Regular rate/rhythm, Normal S1 S2 Gastrointestinal: Normal bowel sounds, No tenderness Musculoskeletal: No tenderness Integumentary: No rashes Neurological: Normal gait, Normal speech, Normal tone, Normal affect Lymphatics: No axilla or inguinal lymphadenopathy - Problems (1) NSTEMI (non-ST elevated myocardial infarction) Current Visit: No Status: Acute Plan: Troponin mild elevated and trending down, most likely type 2 NV from PNA, echo is normal, patient pending stress test. ASA 81 mg dailt Lipitor 20 mg daily (2) Syncopal episodes Current Visit: No Status: Acute Plan: most likely vagal as it happened after coughing, tele shows sinus rhythm, no pauses (3) Hypertension Current Visit: No Status: Chronic Plan: continue patient home medications.
[2024-12-24] MEDS ORDERED: LIDOCAINE 1% 20 ML MDV ONE (15:06)
[2024-12-24] MEDS ORDERED: HEPA 1000U/500MLS 2,000 UNIT/1,000 ML BAG IV ONE (15:06)
[2024-12-24] MEDS ORDERED: HEPARIN 10,000 UNIT/10 ML VIAL IV ONE (15:06)
[2024-12-24] MEDS ORDERED: MIDAZOLAM HCL 2 MG/2 ML INJ ONE (15:07)
[2024-12-24] MEDS ORDERED: HEPARIN 5000 UNIT/ML 1 ML VIAL ONE (15:07)
[2024-12-24] MEDS ORDERED: ATROPINE SULF 1 MG/10 ML SYR IV ONE (15:07)
[2024-12-24] MEDS ORDERED: CLOPIDOGREL 75 MG TABLET ONE (15:07)
[2024-12-24] MEDS ORDERED: TICAGRELOR 90 MG TABLET PO ONE (15:07)
[2024-12-24] MEDS ORDERED: FENTANYL CITR 100 MCG/2 ML ONE (15:08)
[2024-12-24] MEDS ORDERED: ASPIRIN 325 MG TAB ONE (15:08)
[2024-12-24] MEDS ORDERED: NA CHLORIDE 0.9% 500 ML ONE (15:11)
--- NOTE | 2024-12-24 15:26 | RAD REPORT ---
EXAM: Nuclear medicine cardiac perfusion examination with ejection fraction HISTORY: NSTEMI. Chest pain TECHNIQUE: Rest images: 10.8 mCi technetium 99m sestamibi Stress images: 27.3 mCi of technetium 99m sestamibi; Lexiscan COMPARISON: None FINDINGS: Tomographic images: Small region of reversible defect along the inferior wall apical segment. No othe r fixed perfusion defects. Gated images: Normal wall motion and ejection fraction of 58%. No evidence of wall hypokinesia. EDV: 124 mL ESV: 52 mL TID: 0.93 IMPRESSION: Small region of reversible defect along the inferior wall apical segment, suggesting a small region o f ischemia. No other findings to suggest a sizable infarct. Left ventricular ejection fraction:58%, within normal limits
--- NOTE | 2024-12-24 17:18 | P.PN ---
Date of Service: 12/24/24 Subjective Awake awaiting stress test Stress test showed ischemia Tolerated left heart cath with PCI to left circumflex ROS 10 point ROS as noted above, otherwise negative Physical Exam General: Alert and Oriented x3, NAD HEENT: Other (3 cm laceration inside mouth inner lip mucosa, : Right forehead hematoma without laceration.2 cm. Left lower front tooth loose) Neck: Supple, 2+ carotid pulse no bruit, JVD not distended Respiratory: Clear BBS, Normal air movement, on RA Cardiovascular: Normal pulses, RRR, S1 S2 present Capillary refill: <2 Seconds Gastrointestinal: Normal bowel sounds, Soft on palpation Musculoskeletal: No clubbing, No swelling Neurological: Normal speech, Normal strength at 5/5 x4 extr Vitals Reviewed Problem list NSTEMI Syncopal episode Recent diagnosis of pneumonia Coughing, likely cause of syncopal episode Glucose urea Transaminitis Assessment and Plan NSTEMI CAD status post PCI to left circumflex Syncopal episode cardiology following, left heart cath with PCI to left circumflex Continuous telemetry Echo WNL CT of the chest PE protocol, negative Troponin 127/116/102/90 EKG normal sinus rhythm rate [address] abnormality Orthostatic vital signs Normal saline Aspirin, statin, resume home antihypertensive lipid panel, WNL Recent diagnosis of pneumonia Suspect cough/vagal syncope episodes Cough suppressants, budesonide Glucose urea Hemoglobin A1c, 6.4 Blood glucose monitoring Transaminitis AST is 44 DVT ppx Eliquis Full code LOS 24 hours
[2024-12-24] MEDS: MORPHINE 2 MG/ML SYR ONE (17:54)
--- NOTE | 2024-12-24 19:40 | OP ---
Date of Procedure: 12/24/2024 Surgeon: Zelalem Painter Procedures Performed: 1. Left heart catheterization. 2. Selective coronary angiogram. 3. Percutaneous coronary intervention of the left circumflex with Synergy 3.0 x 24 mm drug-eluting st ent. Indication For Procedure: [id number] NC, abnormal stress test. Complications: None. Estimated Blood Loss: Less than 50 cc. Access: Right radial, closed by TR band. Sedation Time: 30 minutes with 1 of Versed and 50 of fentanyl. Description Of Procedure: After risks, benefits, and alternatives were explained to patient, patient agreed to proceed with procedure and signed informed consent. The patient was brought back to the c ath lab, prepped and draped in sterile fashion. Time-out was performed. Sedation was administered. Next, right radial access was obtained using ultrasound-guided micropuncture technique. [place] 4 cat heter was advanced over J-wire to the LV cavity. LVEDP was obtained. Pullback did not show any grad ient. Same catheter was used for selective angiogram of the left and right coronary systems. After that, catheter was exchanged for an XB LAD 3.5 mm guide. Heparin was administered and ACT was therap eutic. Runthrough wire was passed across the left circ lesions, pre-dilated the lesion with an NC 2. 5 mm balloon. Next, Synergy 3.0 x 24 mm drug-eluting stent was placed across the lesion that is post dilated with an NC 3.25 mm balloon. Final angiogram shows JED-3 flow. Wire was removed. Catheter was removed over a J-wire. Sheath was removed. TR band was applied. Hemostasis was achieved and pa tient was moved back to recovery in stable condition. Findings: 1. Left main: Normal. 2. LAD: Mild luminal irregularities. 3. Left circ: Proximal to mid diffuse 70% disease, status post PCI as above. Then, mid to distal mi ld luminal regularities, continues as OM1 and OM2. 4. RCA: Large, dominant with mild luminal irregularities. Assessment And Plan: 1. Significant proximal to mid left circ disease, status post percutaneous coronary intervention with Synergy 3.0 x 24 mm drug-eluting stent. 2. Normal filling pressure. LVEDP is 10 mmHg. 3. Aspirin 81 mg daily for life. 4. 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 x1 in the morning, then continue Plavix 75 mg daily after for 12 months. 5. Continue aggressive medical treatment for CAD. GUILHERME/RITU Voice ID: [id number] Report ID: [id number]
[2024-12-24] MEDS: ATORVASTATIN 20 MG TAB PO SCH (20:41)
[2024-12-25 06:09] LABS: Absolute Basophils 0.1 K/uL (0-0.5); Absolute Eosinophils 0.2 K/uL (0-0.5); Absolute Lymphocytes (CBC) 1.3 K/uL (0.7-4.9); Absolute Monocytes 1.4 K/uL (0.1-1.3); Absolute Neutrophil 10.2 K/uL (1.8-8.0); Basophils % 0.7 % (0-1.3); Eosinophils % 1.4 % (0-4.4); Hematocrit 46.6 % (39.6-49.0); Hemoglobin 16.4 g/dL (13.6-17.9); Lymphocytes % 9.6 % (15.3-44.8); MCH 29.2 pg (27.0-35.0); MCHC 35.2 g/dL (32.0-36.0); MCV 83.1 fL (80-100); MPV 9.2 fL (7.6-11.3); Monocytes % 10.5 % (3.3-12.3); Neutrophils % 77.8 % (41.7-73.7); Platelets 240 thou/uL (152-406); RBC Red Blood Cell Count 5.61 M/uL (4.33-5.43); Red Cell Distribution Width 17.9 % (12.1-15.2)
[2024-12-25 06:23] LABS: Anion Gap 6.7 mEq/L (5.0-15.0); Potassium 3.7 mEq/L (3.5-5.1)
[2024-12-25] MEDS: POTASSIUM PHOS IN 0.9 % NACL 15 MMOL/250 ML BAG IV ONE (08:23)
[2024-12-25] MEDS: CLOPIDOGREL 75 MG TABLET PO ONE (08:23)
[2024-12-25] MEDS ORDERED: CLOPIDOGREL 75 MG TABLET PO ONE (09:00)
[2024-12-25 10:37] VITALS: O2SAT 97
--- NOTE | 2024-12-25 14:44 | P.DS ---
Admission Date: 12/25/24 Discharge Date: 12/25/24 Disposition: ROUTINE DISCHARGE Discharge Condition: GOOD Reason for Admission: Syncopal episode, NSTEMI Brief History of Present Illness: Diagnosis NSTEMI CAD status post PCI to left circumflex Syncopal episode Fall trauma Recent diagnosis of pneumonia Suspect cough/vagal syncope episodes Glucose urea Diabetes Mellitus Transaminitis HPI 12/23/24 53-year-old male with a past medical history of hypertension,Presents to the emergency room with syncopal episode. He reports recently being diagnosed with pneumonia, reports frequent coughing, syncopal episodes happened during coughing. He reports recently starting on blood pressure medication 2 weeks ago. He does not know the name. He denies chest pain, shortness of breath. Fever. he reports yncopal episode with LOC/ fall with facial laceration, chin laceration, forehead laceration from a prior fall. He reports being unconscious about 5 to 10 seconds. He reports waking up in a pool of blood. ER placed 5 sutures to the inner lower lip. Plan to admit for syncopal episode with loss of consciousness, cough, fall with chin/lip laceration. Hospital Course: Conrad was admitted and treated for the following diagnosis NSTEMI CAD status post PCI to left circumflex Syncopal episode seen by cardiology, left heart cath with PCI to left circumflex Per cardiology, type 2 MN 2/2 Pneumonia Syncopal episode most likely vagal Continuous telemetry with no acute events Echo WNL CT of the chest PE protocol, negative Troponin 127/116/102/90 EKG normal sinus rhythm rate [address] abnormality Tolerated Aspirin, statin, resume home antihypertensive Risk factors evaluated: lipid panel, WNL Fall trauma- Surgicel applied to laceration, Bleeding controlled prior to discharge -3 cm laceration inside mouth inner lip mucosa -Right forehead hematoma without laceration.2 cm -Left lower front tooth loose Recent diagnosis of pneumonia Suspect cough/vagal syncope episodes Supportive care with Cough suppressants, budesonide Glucose urea Diabetes Mellitus Hemoglobin A1c, 6.4 Blood glucose monitoring Transaminitis AST is 44 On 12/25/24, Conrad was seen on morning rounds hemodynamically stable, Dr. Painter has evaluated and clear him for discharge with plavix for one year amd continued eliquis, and follow up in clinic. Physical Exam General: AAO x3, NAD HEENT: Other (3 cm laceration inside mouth inner lip mucosa, : Right forehead hematoma without laceration.2 cm. Left lower front tooth loose) Neck: Supple, 2+ carotid pulse no bruit, JVD not distended Respiratory: Clear BBS, Normal air movement, on RA Cardiovascular: Normal pulses, normal sinus rhythm, S1 S2 present Capillary refill: <2 Seconds Gastrointestinal: Normal active bowel sounds, Soft on palpation on palpation Musculoskeletal: No clubbing, No swelling Neurological: Normal speech, Normal strength at 5/5 x4 extr Vital Signs/Physical Exam: Temp Pulse Resp BP Pulse Ox 98.2 F 74 16 140/85 97 12/25/24 12:00 12/25/24 12:00 12/25/24 12:36 12/25/24 12:00 12/25/24 12:36 Laboratory Data at Discharge: WBC 13.00 thou/uL (4.3-10.9) H 12/25/24 05:56 Hgb 16.4 g/dL (13.6-17.9) 12/25/24 05:56 Hct 46.6 % (39.6-49.0) 12/25/24 05:56 Plt Count 240 thou/uL (152-406) 12/25/24 05:56 PT 11.1 SECONDS (10-13.0) 12/23/24 08:00 INR 0.97 12/23/24 08:00 APTT 32.2 SECONDS (27.2-37.4) 12/23/24 08:00 Sodium 131 mEq/L (136-145) L 12/25/24 05:56 Potassium 3.7 mEq/L (3.5-5.1) 12/25/24 05:56 BUN 11 mg/dL (7-18) 12/25/24 05:56 Creatinine 1.09 mg/dL (0.70-1.30) 12/25/24 05:56 Glucose 127 mg/dL (74-106) H 12/25/24 05:56 Phosphorus 2.5 mg/dL (2.5-4.9) 12/25/24 05:56 Magnesium 2.0 mg/dL (1.6-2.4) 12/25/24 05:56 Total Bilirubin 0.5 mg/dL (0.2-1.0) 12/23/24 08:00 AST 44 U/L (15-37) H 12/23/24 08:00 ALT 51 U/L (16-61) 12/23/24 08:00 Alkaline Phosphatase 82 U/L (45-117) 12/23/24 08:00 Triglycerides 91 mg/dL (<150) 12/24/24 05:45 Cholesterol 106 mg/dL (<200) 12/24/24 05:45 HDL Cholesterol 38 mg/dL (40-60) L 12/24/24 05:45 Cholesterol/HDL Ratio 2.79 12/24/24 05:45 Home Medications: Apixaban [Eliquis] 5 mg PO BID #20 tablet 03/21/21 Alprazolam [Xanax] 0.5 mg PO BID 12/23/24 Aspirin [Low Dose Aspirin EC] 81 mg PO DAILY 12/23/24 Atorvastatin Calcium 20 mg PO BEDTIME 12/23/24 Cetirizine HCl [All Day Allergy] 10 mg PO DAILY 12/23/24 Losartan Potassium 25 mg PO DAILY 12/23/24 Sertraline [Zoloft*] 50 mg PO DAILY 12/23/24 Sildenafil Citrate [Viagra] 100 mg PO PRN 12/23/24 Apixaban [Eliquis] 5 mg PO BID 30 Days #60 tablet 12/25/24 Clopidogrel Bisulfate [Plavix*] 75 mg PO DAILY 30 Days #30 tab 12/25/24 New Medications: Apixaban [Eliquis] 5 mg PO BID 30 Days #60 tablet Clopidogrel Bisulfate [Plavix*] 75 mg PO DAILY 30 Days #30 tab Physician Discharge Instructions: 1. Please call and schedule a follow-up appointment with your PCP in 3-5 days - Please follow-up with your PCP for medication refills/adjustments 2. Please call and schedule a follow-up appointment with Dr. Painter in one week -Dr. Painter will provide refills for plavix and Eliquis, all are important medications -Cotinue Eliquis and follow up with Dr. Painter -Follow up closely with Cardiology 3. Continue heart healthy diet 4. activity restrictions fall precaution 5. Return to the ED if symptoms worsen- if bleeding worsens while on blood thinners, please return to the hospital New medications Plavix 75 mg daily x 30 days, cardiology will continue with refills Diet: AHA Activity: Fall precautions Followup: Zelalem Painter MD [ACTIVE - CAN ADMIT] - 1 Week (call to schedule an appointme nt) NONE,NONE [Primary Care Provider] - (follow up ion 3-5 days, call to schedule an appointment)
[2024-12-25 17:06] VITALS: BP 135/80; TEMP 98.5
[2024-12-26] MEDS ORDERED: CLOPIDOGREL 75 MG TABLET PO SCH (09:00)
== END 2024-12-25 16:35 | disposition home or self-care (01) | DRG 321 ==
LOC: ER 07:14 → ERHOLD 10:26 → 4TH 16:17 → OBSVTOIN 12-25 09:11
PROVIDERS: ADMIT Internal Medicine; ATTEND Internal Medicine
PROC: 027034Z Dilation of Coronary Artery, One Artery with Drug-eluting Intraluminal Device, Percutaneous Approach (ICD-10-PCS; principal; 2024-12-24)
PROC: 4A023N7 Measurement of Cardiac Sampling and Pressure, Left Heart, Percutaneous Approach (ICD-10-PCS; 2024-12-24)
PROC: B2111ZZ Fluoroscopy of Multiple Coronary Arteries using Low Osmolar Contrast (ICD-10-PCS; 2024-12-24)
PROC: 0JQ10ZZ Repair Face Subcutaneous Tissue and Fascia, Open Approach (ICD-10-PCS; 2024-12-25)
PROC: 0CQ10ZZ Repair Lower Lip, Open Approach (ICD-10-PCS; 2024-12-25)
DX: R55 Syncope and collapse (principal); I21.A1 Myocardial infarction type 2; I10 Essential (primary) hypertension; E11.9 Type 2 diabetes mellitus without complications; S01.81XA Laceration without foreign body of other part of head, initial encounter; S01.511A Laceration without foreign body of lip, initial encounter; I25.10 Atherosclerotic heart disease of native coronary artery without angina pectoris; R05.9 Cough, unspecified; R74.01 Elevation of levels of liver transaminase levels; Z60.2 Problems related to living alone; Z79.4 Long term (current) use of insulin; Z95.1 Presence of aortocoronary bypass graft; Z79.82 Long term (current) use of aspirin; Z79.52 Long term (current) use of systemic steroids; Z79.84 Long term (current) use of oral hypoglycemic drugs; Z79.899 Other long term (current) drug therapy; W19.XXXA Unspecified fall, initial encounter; Y93.89 Activity, other specified; Y92.9 Unspecified place or not applicable; Y99.9 Unspecified external cause status
CPT/HCPCS: 12051; 36415; 70450; 70486; 71045; 71275; 76377; 76937; 78452; 80048; 80061; 80076; 81001; 82947; 83036; 83735; 83880; 84100; 84484; 85025; 85347; 85610; 85730; 92928; 93005; 93017; 93306; 93458; 94640; 96374; 96375; 99152; 99285; A9500; C1725; C1877; C1893; G0378; J0461; J1644; J1650; J2003; J2250; J2270; J2405; J2785; J3010; J7030; J7040; J7626; Q9967

== ENCOUNTER 2024-12-30 09:38 | Emergency (ER) | payer SELFPAY ==
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
--- NOTE | 2024-12-30 10:03 | EDPHYS ---
Physician Documentation [facility] Name: Conrad Sandoval Jr Age: 54 yrs Sex: Male : 1970 Arrival Date: 12/30/2024 Time: 09:38 Bed IW1 Private MD: ED Physician Sky Valdes HPI: 12/30 10:04 This 54 yrs old Male presents to ER via Ambulatory with complaints of Wound ms3 Check. 10:04 54-year-old male with past medical history of diabetes presents to the emergency ms3 department for right chin laceration that occurred on December 24, 2023. Patient states he has internal and external sutures. Patient has noted when drinking water there is leakage. Patient notes the area is also hardened and erythematous. Patient states his discomfort is a 5/10.. Historical: - Allergies: 09:44 No Known Allergies; ll1 - PMHx: 09:44 Diabetes - IDDM; ll1 - PSHx: 09:44 None; ll1 - Immunization history:: Adult Immunizations up to date. - Infectious Disease History:: Denies. - Social history:: Smoking status: Patient denies any tobacco usage or history of. ROS: 10:04 Constitutional: Negative for fever, and chills. Cardiovascular: Negative for chest ms3 pain, and palpitations. Respiratory: Negative for shortness of breath, cough, wheezing, and pleuritic chest pain, Abdomen/GI: Negative for abdominal pain, nausea, vomiting, diarrhea, and constipation, MS/Extremity: Negative for injury and deformity, 10:04 Skin: Positive for right chin wound, Exam: 10:04 Constitutional: This is a well developed, well nourished patient who is awake, alert, ms3 and in no acute distress. Cardiovascular: Regular rate and rhythm with a normal S1 and S2. No gallops, murmurs, or rubs. Normal PMI, no JVD. No pulse deficits. Respiratory: Lungs have equal breath sounds bilaterally, clear to auscultation and percussion. No rales, rhonchi or wheezes noted. No increased work of breathing, no retractions or nasal flaring. Abdomen/GI: Soft, non-tender, with normal bowel sounds. No distension or tympany. No guarding or rebound. No evidence of tenderness throughout. 10:04 Skin: Wound recheck: Right chin laceration with induration surrounding laceration, ecchymosis., Vital Signs: 09:45 BP 134 / 92; Pulse 100; Resp 17; Temp 97.5; Pulse Ox 98% ; Weight 113.4 kg; Height 6 ll1 ft. 0 in. ; Pain 5/10; 09:45 Body Mass Index 33.91 (113.40 kg, 182.88 cm) ll1 09:45 Pain Scale: Adult ll1 MDM: 10:02 Medical Screening Exam initiated ms3 10:04 Differential diagnosis: cellulitis, Lacerationhealing, contusion. Data reviewed: vital ms3 signs, nurses notes, and as a result, I will discharge patient. I considered the following discharge prescriptions or medication management in the emergency department Medications prescribed. Counseling: I had a detailed discussion with the patient and/or guardian regarding the historical points, exam findings, and any diagnostic results supporting the discharge/admit diagnosis, the need for outpatient follow up, to return to the emergency department if symptoms worsen or persist or if there are any questions or concerns that arise at home. Special discussion: I discussed with the patient/guardian in detail that at this point there is no indication for admission to the hospital. It is understood, however, that if the symptoms persist or worsen the patient needs to return immediately for re-evaluation. ED course: Discussed physical exam findings with patient. Possible cellulitis around laceration site. Patient given prescription for clindamycin and Peridex. Patient to follow-up with Dr. Cristobal in 2 to 3 days. All questions were answered. Return precautions discussed include worsening symptoms, or any other concerns.. Administered Medications: No medications were administered Disposition Summary: 12/30/24 10:02 Discharge Ordered Notes: Location: Home ms3 Condition: Stable ms3 Diagnosis - Facial wound ms3 - Cellulitis of face ms3 - Contusion of unspecified part of head ms3 Followup: ms3 - With: Hank Cristobal DDS - When: 2 - 3 days - Reason: Recheck today's complaints Discharge Instructions: - Discharge Summary Sheet ll1 - Cellulitis, Adult, [id number] ms3 Forms: - Work release form ll1 - Medication Reconciliation Form ms3 - Antibiotic Education ms3 - Prescription Opioid Use ms3 - Patient Portal Instructions ms3 - Leadership Thank You Letter ms3 Prescriptions: - Peridex 0.12 % Mucous Membrane Mouthwash - swish 15 milliliter BUCCAL route after meals and before bedtime; 600 ms3 milliliter; Refills: 0, Product Selection Permitted - Clindamycin HCl 300 mg Oral capsule - take 1 capsule ORAL route every 8 hours for 7 days; 21 capsule; Refills: 0, ms3 Product Selection Permitted Signatures: Autumn Castillo RN RN ll1 Sky Valdes DO DO ms3
--- NOTE | 2024-12-30 10:03 | ER ---
Nurse's Notes [facility] Name: Conrad Sandoval Jr Age: 54 yrs Sex: Male : 1970 Arrival Date: 12/30/2024 Time: 09:38 Bed IW1 Private MD: Diagnosis: Facial wound;Cellulitis of face;Contusion of unspecified part of head Presentation: 12/30 09:45 Chief complaint: Patient states: Chin wound is red, swollen, painful, and has a foul ll1 odor getting worse this week. No fever. Coronavirus screen: Client denies travel out of the [place] in the last 14 days. At this time, the client does not indicate any symptoms associated with coronavirus-19. Ebola Screen: Patient denies travel to an Ebola-affected area in the 21 days before illness onset. Initial Sepsis Screen: Does the patient meet any 2 criteria? No. Patient's initial sepsis screen is negative. Does the patient have a suspected source of infection? No. Patient's initial sepsis screen is negative. Risk Assessment: Do you want to hurt yourself or someone else? Patient reports no desire to harm self or others. Onset of symptoms was December 23, 2024. 09:45 Method Of Arrival: Ambulatory ll1 09:45 Acuity: ELIAN 3 ll1 Triage Assessment: 09:45 General: Appears uncomfortable, Behavior is calm, cooperative, appropriate for age. ll1 Pain: Complains of pain in chin Quality of pain is described as aching. Derm: Reports pain, redness, swelling to chin area. Musculoskeletal: Reports pain in lower jaw. Historical: - Allergies: 09:44 No Known Allergies; ll1 - PMHx: 09:44 Diabetes - IDDM; ll1 - PSHx: 09:44 None; ll1 - Immunization history:: Adult Immunizations up to date. - Infectious Disease History:: Denies. - Social history:: Smoking status: Patient denies any tobacco usage or history of. Screenin:11 [facility] ED Fall Risk Assessment (Adult) History of falling in the last 3 months, ll1 including since admission Yes- single mechanical fall (1 pt) Confusion or Disorientation No (0 pts) Intoxicated or Sedated No (0 pts) Impaired Gait No (0 pts) Mobility Assist Device Used No (0 pt) Altered Elimination No (0 pt) Score/Fall Risk Level 0 - 2 = Low Risk Maintained a safe environment, Hourly rounding (assess needs \T\ fall precautionary measures) done. Abuse screen: Denies threats or abuse. Nutritional screening: No deficits noted. Tuberculosis screening: No symptoms or risk factors identified. Assessment: 10:11 Reassessment: No changes from previously documented assessment. Patient and/or family ll1 updated on plan of care and expected duration. Pain level reassessed. Patient is alert, oriented x 3, equal unlabored respirations, skin warm/dry/pink. Vital Signs: 09:45 BP 134 / 92; Pulse 100; Resp 17; Temp 97.5; Pulse Ox 98% ; Weight 113.4 kg; Height 6 ll1 ft. 0 in. ; Pain 5/10; 09:45 Body Mass Index 33.91 (113.40 kg, 182.88 cm) ll1 09:45 Pain Scale: Adult [facility] ED Course: 09:41 Patient arrived in ED. al6 09:42 Sky Valdes DO is Attending Physician. ll1 09:46 Triage completed. ll1 09:49 Arm band placed on. ll1 10:01 Hank Cristobal DDS is Referral Physician. ms3 10:11 Patient has correct armband on for positive identification. Bed in low position. ll1 Provided Education on: finish all prescribed antibiotics. 10:11 No provider procedures requiring assistance completed. Patient did not have IV access ll1 during this emergency room visit. Administered Medications: No medications were administered Medication: 10:18 VIS not applicable for this client. ll1 Outcome: 10:02 Discharge ordered by . ms3 10:11 Patient left the ED. ll1 10:11 Discharged to home ambulatory, ll1 10:11 Condition: stable 10:11 Discharge instructions given to patient, Instructed on discharge instructions, follow up and referral plans. Demonstrated understanding of instructions, follow-up care, Prescriptions given X 2, Signatures: Autumn Castillo RN RN ll1 Sky Valdes DO DO ms3 Jayne Nowak al6
[2024-12-30 10:15] VITALS: BP 134/92; TEMP 97.5; O2SAT 98
== END 2024-12-30 10:11 | disposition home or self-care (01) ==
LOC: ER 09:38
DX: L03.211 Cellulitis of face (principal); S00.83XA Contusion of other part of head, initial encounter
CPT/HCPCS: 99283